=== PATIENT | female | born 1990 | race Two or more races ===

== ENCOUNTER 2020-07-29 00:30 | Emergency (ER) | payer OTHER, SELFPAY ==
[2020-07-29 00:47] VITALS: BP 161/69; PULSE 92; RESP 18; TEMP 35.7; O2SAT 99; BMI 51.5
--- NOTE | 2020-07-29 04:00 | ECG_ITS ---
Test Reason : ANXIETY Blood Pressure : / mmHG Vent. Rate : 073 BPM Atrial Rate : 073 BPM P-R Int : 166 ms QRS Dur : 078 ms QT Int : 410 ms P-R-T Axes : 048 044 024 degrees QTc Int : 451 ms Normal sinus rhythm Normal ECG When compared with ECG of 23-JAN-2018 01:04, No significant change was found Referred By: Lynn Sheridan Electronically Signed By:DEVEN JUAN MD
--- NOTE | 2020-07-29 04:01 | ED.GENADULT ---
HPI - General Adult General Chief complaint: Anxiety Stated complaint: Sob Time Seen by Provider: 07/29/20 03:56 Source: patient Mode of arrival: ambulatory Limitations: no limitations History of Present Illness HPI narrative: Patient comes to emergency room complaining of palpitations. Patient states that she was driving today, started feeling palpitations, shortness of breath, tried to drink water to make herself feel better but could not swallow. Patient states she has never been diagnosed with anxiety. Patient has had this similar episodes 4 times within the last 3 months. Patient denies chest pain. At this moment, patient is asymptomatic. MD complaint: palpitations Onset (ago): hour(s) Radiation: non-radiation Pain Consistency: intermittent Relieving factors: none Exacerbating factors: none Related Data Allergies Allergy/AdvReac Type Severity Reaction Status Date / Time amoxicillin [AMOXICILLIN] Allergy Intermediate HIVES Unverified 07/02/20 16:24 codeine [CODEINE] Allergy Intermediate RASH Unverified 07/02/20 16:24 latex [LATEX] Allergy Intermediate RED PUFFY Unverified 07/02/20 16:24 Penicillins [PENICILLINS] Allergy Intermediate HIVES Unverified 07/02/20 16:24 From KEFLEX Allergy Intermediate HIVES Uncoded 07/02/20 16:24 Review of Systems Review of Systems: Constitutional : No Weight loss, No Fever, No Chills, No Night Sweats, No Fatigue, No Malaise ENT/Mouth : No Hearing loss, No Ear Pain, No Nasal Congestion, No Sinus Pain, No Hoarseness, No sore throat, No Rhinorrhea, No Swallowing Difficulty Eyes: No Eye Pain, No Swelling, No Redness, No Foreign Body, No Discharge, No Vision Changes Cardiovascular : No Chest Pain, mild dyspnea with palpitations, No Orthopnea, No Edema, Respiratory : No Cough, No Sputum, No Wheezing, No Smoke Exposure, No Dyspnea Gastrointestinal : No Nausea, No Vomiting, No Diarrhea, No Constipation, No abdominal Pain, No Hematochezia, No Melena Genitourinary : no irregular bleeding, No Dysuria, No Urinary Frequency, No Hematuria, No Urinary Incontinence, No Urgency, No Flank Pain, No Urinary Flow Changes, No Hesitancy Musculoskeletal : No joint pain, No Myalgias, No Joint Swelling Skin : No Skin Lesions, No rash Neuro : No Weakness, No Numbness, No Paresthesias, No Loss of Consciousness, No Dizziness, No Headache Psych : No Anxiety/Panic, No Depression, No SI/HI/AH/VH, No Social Issues, Heme/Lymph: No Bruising, No Bleeding,No Lymphadenopathy Endocrine : No Polyuria, No Polydipsia, No Temperature Intolerance FOR[facility] Social History Social History Advance Directives: No Advance Directives Information Provided: No Physical Exam Vital Signs: Vital Signs: Vital Signs Temp Pulse Resp BP Pulse Ox 07/29/20 06:27 79 14 118/77 100 07/29/20 04:14 72 14 109/64 99 07/29/20 00:47 96.2 F L 92 18 161/69 H 99 Body Mass Index 51.5 Appearance: Alert. Oriented X3. No acute distress. Eyes: Pupils equal, round and reactive to light. ENT: Pharynx normal. Neck: Normal inspection. Neck supple. No lymph nodes noted. No crepitus CVS: Normal heart rate and rhythm. Pulses normal. Normal S1 and S2 Respiratory: No respiratory distress. Breath sounds normal. No Wheezing. No rales Abdomen: Soft and nontender. No rigidity. No distention. good BS x4 Skin: Skin warm and dry. Normal skin color. Normal skin turgor. Extremities: No lower extremity edema. No lower extremity edema. No Lacerations. No Rash Neuro: Oriented X 3. No motor deficit. No sensory deficit. Moving all extermities. No slurred speech. Course Course Course Narrative: patient slept throughout the ED stay. Patient no longer however palpitations, no chest pain or shortness of breath. Medical Decision Making MDM Narrative Medical decision making narrative: I discussed the labs with the patient, patient may need a Holter monitor if she continues having symptoms. Patient instructed to follow-up with her primary care physician. Lab Data Result diagrams: 07/29/20 04:30 07/29/20 04:30 Labs: Lab Results 07/29/20 07/29/20 Range/Units 04:30 04:30 WBC 12.8 H (4.8-10.8) X10*3/uL RBC 4.46 (4.20-5.50) X10*6/uL Hgb 12.3 (12.0-16.0) g/dl Hct 39.1 (37-47) % MCV 87.7 (80-98) fL MCH 27.6 (27.0-33.0) pg MCHC 31.5 (31.0-35.0) g/dl RDW 13.2 (11.0-16.0) % Plt Count 276 (160-400) X10*3/uL MPV 10.8 (9.4-12.3) fL Immature Gran % (Auto) 0.5 H (0.0-0.4) % Neut % (Auto) 63.8 (45-73) % Lymph % (Auto) 27.6 (20-40) % [place] % (Auto) 6.2 (2-11) % Eos % (Auto) 1.7 (0-4) % Baso % (Auto) 0.2 (0-2) % Lymph # (Auto) 3.5 (1.2-4.9) X10*3/uL [place] # (Auto) 0.8 (0.1-1.2) X10*3/uL Eos # (Auto) 0.2 (0.0-0.4) X10*3/uL Baso # (Auto) 0.0 (0.0-0.2) X10*3/uL Abs Immat Gran (auto) 0.06 H (0.00-0.03) X10*3/uL Absolute Neuts (auto) 8.2 (2.0-8.3) X10*3/uL Absolute Nucleated RBC 0.000 (0.0-0.012) X10*3/uL Nucleated RBC % (auto) 0.0 (0.0-0.2) /100WBC Sodium 136 (135-145) mmol/L Potassium 3.7 (3.3-5.1) mmol/l Chloride 103 (96-108) mmol/L Carbon Dioxide 25 (22-29) mmol/L Anion Gap 12 (12-20) BUN 13 (9-16) mg/dL Creatinine 0.70 (0.5-1.4) mg/dL Estim Creat Clear Calc 163.3 Estimated GFR > 60 Random Glucose 91 (60-115) mg/dL Calcium 9.2 (8.4-10.2) mg/dL TSH 3.73 (0.32-4.0) mIU/mL Discharge Plan Discharge Clinical Impression: Heart palpitations Patient Disposition: Home, Self-Care Instructions: Heart Palpitations (ED) Additional Instructions: Please follow-up with your primary care physician tomorrow. If you have any worsening or new symptoms, please return to the emergency room or call 911
[2020-07-29 04:14] VITALS: BP 109/64; PULSE 72; RESP 14; O2SAT 99
[2020-07-29 04:36] LABS: Basophils Percent Auto 0.2 % (0-2); Eosinophils Absolute Auto 0.2 X10*3/uL (0.0-0.4); Eosinophils Percent Auto 1.7 % (0-4); Hematocrit 39.1 % (37-47); Hemoglobin 12.3 g/dl (12.0-16.0); Imm Gran Abs Auto 0.06 X10*3/uL (0.00-0.03); Imm Gran Pct Auto 0.5 % (0.0-0.4); Lymphocytes Absolute Auto 3.5 X10*3/uL (1.2-4.9); Lymphocytes Percent Auto 27.6 % (20-40); MANUAL DIFF FLAG NO; Mean Corpuscular HGB Conc 31.5 g/dl (31.0-35.0); Mean Corpuscular Hemoglobin 27.6 pg (27.0-33.0); Mean Corpuscular Volume 87.7 fL (80-98); Mean Platelet Volume 10.8 fL (9.4-12.3); Monocytes Absolute Auto 0.8 X10*3/uL (0.1-1.2); Monocytes Percent Auto 6.2 % (2-11); Neutrophils Absolute Auto 8.2 X10*3/uL (2.0-8.3); Neutrophils Percent Auto 63.8 % (45-73); Platelet Count 276 X10*3/uL (160-400); Red Blood Count 4.46 X10*6/uL (4.20-5.50); Red Cell Distribution Width 13.2 % (11.0-16.0); White Blood Count 12.8 X10*3/uL (4.8-10.8)
[2020-07-29 05:33] LABS: Anion Gap 12 (12-20); Blood Urea Nitrogen 13 mg/dL (9-16); Carbon Dioxide 25 mmol/L (22-29); Chloride 103 mmol/L (96-108); Creatinine Clr Calc Pharmacy 163.3; Estimated Glomerular Filt Rate > 60; Glucose Random 91 mg/dL (60-115); Potassium 3.7 mmol/l (3.3-5.1); Sodium 136 mmol/L (135-145)
[2020-07-29 05:39] LABS: Calcium 9.2 mg/dL (8.4-10.2)
[2020-07-29 05:41] LABS: TSH reflex Free T4 3.73 mIU/mL (0.32-4.0)
[2020-07-29 06:27] VITALS: BP 118/77; PULSE 79; RESP 14; O2SAT 100
== END 2020-07-29 07:28 | disposition home or self-care (01) ==
PROVIDERS: Emergency Provider Emergency Medicine; PCP Internal Medicine
DX: R00.2 Palpitations (principal); R06.02 Shortness of breath; F41.9 Anxiety disorder, unspecified; Z79.899 Other long term (current) drug therapy
CPT/HCPCS: 36415; 80048; 84443; 85025; 93005; 99283; 99284

== ENCOUNTER 2020-08-18 11:09 | Outpatient (REF) | payer OTHER, SELFPAY | END 2020-08-18 11:10 | disposition home or self-care (01) | LOC: HO.LAB 11:09 | PROVIDERS: Visit Provider Internal Medicine | DX: Z20.828 Contact with and (suspected) exposure to other viral communicable diseases (principal) | CPT/HCPCS: U0003 ==

== ENCOUNTER 2020-09-28 10:15 | Outpatient (REF) | payer OTHER, SELFPAY | END 2020-09-28 10:16 | disposition home or self-care (01) | LOC: HO.LAB 10:15 | PROVIDERS: Visit Provider Internal Medicine | DX: Z20.828 Contact with and (suspected) exposure to other viral communicable diseases (principal) | CPT/HCPCS: C9803; U0003 ==

== ENCOUNTER 2021-09-14 00:06 | Emergency (ER) | payer OTHER, SELFPAY ==
[2021-09-14 01:50] VITALS: BP 118/70; PULSE 80; RESP 18; TEMP 36.1; O2SAT 99; BMI 54.9
[2021-09-14 02:19] VITALS: O2SAT 98
[2021-09-14 02:45] LABS: IDNOW Serial# 08D9AD1C
[2021-09-14 02:46] LABS: COVID-19 Test Positive (Negative)
--- NOTE | 2021-09-14 03:25 | ED.URI ---
HPI - URI/Sore Throat General Chief Complaint: Upper Respiratory Symptoms Stated Complaint: diff breathing Time Seen by Provider: 09/14/21 02:10 Source: patient Mode of arrival: ambulatory History of Present Illness HPI Narrative: 30-year-old female presents with chest tightness, shortness of breath, dry cough and nasal congestion. Patient endorses that she has not COVID-19 vaccinated and went to a concert 2 days ago. Related Data Allergies Allergy/AdvReac Type Severity Reaction Status Date / Time amoxicillin [AMOXICILLIN] Allergy Intermediate HIVES Unverified 07/02/20 16:24 codeine [CODEINE] Allergy Intermediate RASH Unverified 07/02/20 16:24 latex [LATEX] Allergy Intermediate RED PUFFY Unverified 07/02/20 16:24 Penicillins [PENICILLINS] Allergy Intermediate HIVES Unverified 07/02/20 16:24 From KEFLEX Allergy Intermediate HIVES Uncoded 07/02/20 16:24 Review of Systems Review of Systems: Pertinent positives and negatives as stated in HPI 10 point review of systems is otherwise negative. FORMERLY [facility], [facility] Past Medical History Source: nursing notes reviewed Social History Social History Advance Directives: No Advance Directives Information Provided: No Physical Exam Vital Signs: Vital Signs: Last Vital Signs Temp 97 F 09/14/21 01:50 Pulse 80 09/14/21 01:50 Resp 18 09/14/21 01:50 BP 118/70 09/14/21 01:50 Pulse Ox 98 09/14/21 02:19 Body Mass Index 54.9 VITAL SIGNS: Reviewed. GENERAL: Well developed, well nourished, in no acute distress. HEAD: Normocephalic/atraumatic EYES: PERRLA, EOMI EARS: Ext canals without abnormality, TMs non-bulging and non-erythematous NOSE: Nares patent bilateral OROPHARYNX: no oral lesions noted, posterior pharynx clear and non-erythematous without noted tonsillar enlargement/erythema/exudates NECK: Supple, no adenopathy LUNGS: Normal breath sounds. No adventitious sounds or accessory muscle use. SpO2<98> CARDIOVASCULAR: Regular rate and rhythm without noted murmurs, no JVD or lower extremity edema. ABDOMEN: Soft, non-tender, non-distended with bowel sounds. NEUROLOGIC: Alert and oriented x 4. Course Course Course Narrative: This is a 30-year-old female with history and clinical presentation most consistent with COVID-19 infection and on review of all investigations patient is positive for COVID-19. She was informed of the results And informed that she needed to self quarantine. She is otherwise without increased work of breathing, oxygenating well and afebrile. MDM - URI/Sore Throat Lab Data Labs: Lab Results 09/14/21 Range/Units 02:19 COVID-19 (RADHA) Positive A (Negative) COVID-19 Clin Com See Note Discharge Plan Discharge Clinical Impression: Viral syndrome, Lab test positive for detection of COVID-19 virus Patient Disposition: Home, Self-Care Instructions: COVID-19 (Coronavirus Disease 2019) (ED), Viral Syndrome (ED) Additional Instructions: 1. You have COVID-19 and must self quarantine as per all state and Federal guidelines. 2. Recommend using [id number] Tylenol/ ibuprofen as needed for any body aches, chest congestion, temperatures greater than 100.4. 3. Follow-up with your primary care provider via telemedicine and the next 1-2 days for re-evaluation and further outpatient management. Return to the ER for worsening shortness of breath. Referrals: Nataliia Francisco MD [Primary Care Provider] - 2 days
--- NOTE | 2021-09-14 03:40 | PC.NURSE ---
Pt remains alert and oriented x4, calm and cooperative. Pt denies pain at this time. Pt states SOB at times, does appear in acute distress and O2 sat on room air is 99%. Pt educated by MD Scales and AYAZ Gonzalez regarding positive Covid results, pt refuses results and states thats false it can t be true . Pt states this is bronchitis . Pt educated on similarities between symptoms of Covid-19 and Bronchitis as well as social history of attending a crowded concert per patient this past Monday. Pt educated on positive results and how not being vaccinated places her at increased risk of barrie the disease. educated patient with RN present that she has the right to obtain a second opinion elsewhere if she would like. Pt educated on Covid-19 precautions and isolation measures and to return to ER if symptoms worsen. Pt stated an understanding and agreed to discharge, pt walked out of ER independently without issues. No IV in place, vitals stable.
== END 2021-09-14 03:45 | disposition home or self-care (01) ==
PROVIDERS: Emergency Provider Student in an Organized Health Care Education/Training Program; PCP Internal Medicine
DX: U07.1 COVID-19 (principal); B34.9 Viral infection, unspecified
CPT/HCPCS: 36415; 87635; 99283; 99284

== ENCOUNTER 2021-09-17 13:20 | Emergency (ER) | payer OTHER, SELFPAY ==
--- NOTE | ~2021-09-17 | XR_ITS ---
EXAMINATION: XR CHEST CLINICAL INFORMATION: COVID positive COMPARISON: Chest radiographs 03/02/2019, 06/24/2018 TECHNIQUE: Frontal view chest was obtained. FINDINGS: There are subtle airspace opacities right base and left suprahilar region. There is no lobar or segmental airspace consolidation or effusion. No pneumothorax or pneumomediastinum. The costophrenic sulci are clear. Heart size normal. The hilar and mediastinal contours and bony structures are unremarkable. XR/XR chest 1V IMPRESSION: Airspace opacities right base and left suprahilar region. No effusion.
[2021-09-17 14:40] VITALS: BP 130/70; PULSE 106; RESP 20; TEMP 37; O2SAT 98; BMI 54.9
--- NOTE | 2021-09-17 18:57 | ED.URI ---
HPI - URI/Sore Throat General Chief Complaint: Upper Respiratory Symptoms Stated Complaint: COVID + DIFF BREATHING Time Seen by Provider: 09/17/21 18:56 Source: patient Mode of arrival: ambulatory Limitations: no limitations History of Present Illness HPI Narrative: Patient been COVID positive for last 5 days not vaccinated against COVID coughing a lot having nausea and diarrhea body aches noticed slight shortness of breath saturating 98% at room air on arrival denies any fever Related Data Previous Rx's Medication Instructions Recorded albuterol sulfate 90 mcg/actuation 2 puff INHALATION Q4-6H PRN #8.5 g 09/17/21 aerosol inhaler (ProAir HFA) benzonatate 200 mg capsule 200 mg PO TID PRN #30 cap 09/17/21 dexamethasone 6 mg tablet 6 mg PO DAILY #7 tab 09/17/21 (Decadron) loperamide 2 mg capsule (Imodium 2 mg PO Q6H PRN #20 cap 09/17/21 A-D) ondansetron 4 mg disintegrating 4 mg PO Q6-8H PRN #7 tab 09/17/21 tablet Allergies Allergy/AdvReac Type Severity Reaction Status Date / Time amoxicillin [AMOXICILLIN] Allergy Intermediate HIVES Unverified 07/02/20 16:24 codeine [CODEINE] Allergy Intermediate RASH Unverified 07/02/20 16:24 latex [LATEX] Allergy Intermediate RED PUFFY Unverified 07/02/20 16:24 Penicillins [PENICILLINS] Allergy Intermediate HIVES Unverified 07/02/20 16:24 From KEFLEX Allergy Intermediate HIVES Uncoded 07/02/20 16:24 Review of Systems Review of Systems: Yes all other systems are reviewed and are negative PMFSH Social History Social History Advance Directives: No Advance Directives Information Provided: No Physical Exam Vital Signs: Vital Signs: Last Vital Signs Temp 98.6 F 09/17/21 14:40 Pulse 106 H 09/17/21 14:40 Resp 20 09/17/21 14:40 BP 130/70 09/17/21 14:40 Pulse Ox 98 09/17/21 14:40 BMI result Body Mass Index 54.9 Appearance: Alert. Oriented X3. No acute distress. Obese with dry cough Eyes: No pallor or icterus ENT: Pharynx normal. Oral Mucosa moist right tympanic membrane with hole which is chronic Neck: Normal inspection. Neck supple. CVS: Normal heart rate and rhythm. Pulses normal. Respiratory: No respiratory distress. Equal air entry bilateral, prolonged expiration with dry cough Abdomen: Soft and nontender. Bowel sounds are present, no mass palpable, Skin: Skin warm and dry. Normal skin color. Normal skin turgor. Extremities: No lower extremity edema. No calf tenderness Neuro: Oriented X 3. MDM - URI/Sore Throat Lab Data Attestation: I reviewed the patient's lab results. Discharge Plan Discharge Clinical Impression: COVID-19 Patient Disposition: Home, Self-Care Instructions: COVID-19 (Coronavirus Disease 2019) (ED) Additional Instructions: Social distancing in isolation as advised Medication as advised Report to the ER if increased shortness of breath Prescriptions: New dexamethasone [Decadron] 6 mg tablet 6 mg PO DAILY Qty: 7 RF: 0 albuterol sulfate [ProAir HFA] 90 mcg/actuation HFA aerosol inhaler 2 puff inhalation Q4-6H PRN (Reason: shortness of breath or wheezing) Qty: 8.5 RF: 0 ondansetron 4 mg tablet,disintegrating 4 mg PO Q6-8H PRN (Reason: nausea and vomiting) Qty: 7 RF: 0 benzonatate 200 mg capsule 200 mg PO TID PRN (Reason: cough) Qty: 30 RF: 0 loperamide [Imodium A-D] 2 mg capsule 2 mg PO Q6H PRN (Reason: loose stool) Qty: 20 RF: 0
[2021-09-17] MEDS: Loperamide HCl 2 MG CAPSULE 4 MG PO (19:45)
[2021-09-17] MEDS: Albuterol Sulfate 90 MCG 8 GM INHALER 4 PUFF INHALE (19:45)
[2021-09-17] MEDS: dexAMETHasone 6 MG TABLET PO (19:45)
[2021-09-17] MEDS: Benzonatate 100 MG CAPSULE 200 MG PO (19:45)
[2021-09-17] MEDS: Ondansetron ODT 4 MG TAB.RAPDIS TRANSLINGU (19:45)
== END 2021-09-17 20:17 | disposition home or self-care (01) ==
PROVIDERS: Emergency Provider Internal Medicine; PCP Internal Medicine
DX: U07.1 COVID-19 (principal)
CPT/HCPCS: 71045; 99283; 99284; J8540

== ENCOUNTER 2021-11-23 09:41 | Emergency (ER) | payer OTHER, SELFPAY ==
--- NOTE | ~2021-11-23 | US_ITS ---
EXAMINATION: US PELVIS CLINICAL INFORMATION: Left-sided pain for 2 days COMPARISON: Previous pelvic ultrasound January 2020 TECHNIQUE: Ultrasound of the pelvis is performed using both transabdominal and transvaginal transducers along with Doppler. Transvaginal imaging is performed due to inadequate visualization transabdominally. FINDINGS: The uterus is retroverted and measures 8.1 x 3.5 x 6.6 cm in dimension. No focal uterine lesion is seen. Endometrial thickness is normal measuring 1.3 cm. There are nabothian cysts in the cervix. There is a small amount of fluid seen in the endometrium and endocervical canal. The right ovary is slightly enlarged and measures 4.3 x 4.1 x 3.9 cm. There is a 3.3 x 3.4 x 2.7 cm simple right ovarian cyst. The left ovary is normal-appearing and measures 2.6 x 2.1 x 1.9 cm. There is no fluid in the pelvis. US/US pelvic and transvaginal IMPRESSION: 3.3 x 3.4 x 2.7 cm simple right ovarian cyst.
[2021-11-23 09:50] VITALS: BP 140/90; PULSE 95; RESP 18; TEMP 37.4; O2SAT 97; BMI 54.9
[2021-11-23 10:09] LABS: Appearance Urine HAZY; Color Urine YELLOW; Glucose Urine UA NEG (NEG); Leukocyte Esterase Urine NEG (NEG); Nitrite Urine NEG (NEG); Specific Gravity - Urine 1.025 (1.005-1.025); UACC Culture Trigger NO; Urine Blood 2+ (NEG); Urine Ketones NEG (NEG); Urine Protein NEG (NEG-TRACE)
[2021-11-23 10:13] LABS: UPreg QC Valid YES; Urine Pregnancy NEGATIVE (NEGATIVE)
[2021-11-23 10:20] LABS: Mucus Urine 1+ /LPF; Squamous Epithelial Cell Urine 2+ /LPF; WBC Urine 0 /HPF (0-4)
[2021-11-23 10:21] LABS: Bacteria Urine 1+ /LPF
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
[2021-11-23 11:44] VITALS: BP 134/62; PULSE 77; RESP 16; TEMP 36.5; O2SAT 98
[2021-11-23 13:51] LABS: CT PCR NOT DETECTED (Not Detect.); NG PCR NOT DETECTED (Not Detect.)
== END 2021-11-23 11:56 | disposition home or self-care (01) ==
PROVIDERS: Nurse Practitioner Family; Emergency Provider Emergency Medicine; PCP Internal Medicine
DX: H60.93 Unspecified otitis externa, bilateral (principal); H66.93 Otitis media, unspecified, bilateral; N83.201 Unspecified ovarian cyst, right side; R10.32 Left lower quadrant pain; Z79.899 Other long term (current) drug therapy
CPT/HCPCS: 76830; 76856; 81001; 81025; 87491; 87591; 99284

== ENCOUNTER 2022-10-19 15:38 | Emergency (ER) | payer OTHER, SELFPAY ==
--- NOTE | ~2022-10-19 | XR_ITS ---
EXAMINATION: XR CHEST CLINICAL INFORMATION: Chest pain. COMPARISON: Chest radiograph dated from 09/17/2021. TECHNIQUE: Frontal view of the chest was obtained. FINDINGS: Normal appearance of the cardiomediastinal silhouette. Previously described subtle airspace opacities in the right base and left suprahilar region are resolved. No new focal airspace opacities. No pleural effusion or pneumothorax. No acute osseous abnormalities. XR/XR chest 1V IMPRESSION: No acute cardiopulmonary findings. Resolution of previously described airspace opacities. No pleural effusion or pneumothorax.
[2022-10-19 16:29] VITALS: BP 155/77; PULSE 90; RESP 18; TEMP 36.9; O2SAT 100; BMI 56.6
--- NOTE | 2022-10-19 16:29 | ECG_ITS ---
Test Reason : CHEST PAIN Blood Pressure : / mmHG Vent. Rate : 084 BPM Atrial Rate : 084 BPM P-R Int : 160 ms QRS Dur : 076 ms QT Int : 380 ms P-R-T Axes : 049 037 022 degrees QTc Int : 449 ms Normal sinus rhythm Normal ECG When compared with ECG of 29-JUL-2020 04:12, No significant change was found Referred By: Herlinda Morales Electronically Signed By:ANTONIO CHESTER
--- NOTE | 2022-10-19 16:29 | ED.CHESTPAIN ---
HPI - Chest Pain General Chief Complaint: Chest Pain <ESTELA Pickering - Last Filed: 10/19/22 16:32> Stated Complaint: Chest pain, L sided numbness <ESTELA Pickering - Last Filed: 10/19/22 16:32> Time Seen by Provider: 10/19/22 23:45 <ESTELA Pickering - Last Filed: 10/19/22 16:32> Source: patient <Emerald Donahue MD - Last Filed: 10/20/22 00:36> Mode of arrival: ambulatory <Emerald Donahue MD - Last Filed: 10/20/22 00:36> Limitations: no limitations <Emerald Donahue MD - Last Filed: 10/20/22 00:36> History of Present Illness HPI narrative: 31-year-old female came in for evaluation of chest pain. Chest pain started since yesterday pain is midsternal, intermittent, feels like sharp pain, when it happen is about 7/10, no other associated symptoms, nothing aggravate the pain, nothing relieves the pain. Patient declined any trauma or injury to the chest, no recent travel, no lower extremity swelling, no history of PE or DVT. No coughing, no SOB. <Emerald Donahue MD - Last Filed: 10/20/22 00:36> Related Data Home Medications: Previous Rx's Medication Instructions Recorded albuterol sulfate 90 mcg/actuation 2 puff inhalation Q4-6H PRN 09/17/21 aerosol inhaler (ProAir HFA) shortness of breath or wheezing #8.5 grams benzonatate 200 mg capsule 200 mg PO TID PRN cough #30 caps 09/17/21 dexamethasone 6 mg tablet 6 mg PO DAILY #7 tabs 09/17/21 (Decadron) loperamide 2 mg capsule (Imodium 2 mg PO Q6H PRN loose stool #20 09/17/21 A-D) caps ondansetron 4 mg disintegrating 4 mg PO Q6-8H PRN nausea and 09/17/21 tablet vomiting #7 tabs azithromycin 250 mg tablet See Rx Instructions PO .COMPLEX #6 11/23/21 tabs ibuprofen 600 mg tablet 600 mg PO Q8H PRN pain #20 tabs 11/23/21 ibuprofen 400 mg tablet 400 mg PO Q8H PRN pain #20 tabs 10/20/22 <ESTELA Pickering - Last Filed: 10/19/22 16:32> Allergies/Adverse Reactions: Allergies Allergy/AdvReac Type Severity Reaction Status Date / Time amoxicillin [AMOXICILLIN] Allergy Intermediate HIVES Unverified 07/02/20 16:24 codeine [CODEINE] Allergy Intermediate RASH Unverified 07/02/20 16:24 latex [LATEX] Allergy Intermediate RED PUFFY Unverified 07/02/20 16:24 Penicillins [PENICILLINS] Allergy Intermediate HIVES Unverified 07/02/20 16:24 From KEFLEX Allergy Intermediate HIVES Uncoded 07/02/20 16:24 <ESTELA Pickering - Last Filed: 10/19/22 16:32> Review of Systems Review of Systems: all other systems are reviewed and are negative Constitutional: Reports as per HPI and Reports no additional constitutional complaints Eyes: Reports as per HPI and Reports no additional eye complaints Reports system reviewed and no additional complaints, except as documented Cardiovascular: Reports as per HPI and Reports no additional cardiovascular complaints Respiratory: Reports as per HPI and Reports no additional respiratory complaints Gastrointestinal: Reports as per HPI and Reports no additional gastrointestinal complaints Genitourinary: Reports no additional female genitourinary complaints Musculoskeletal: Reports no additional musculoskeletal complaints Skin/Breast: Reports system reviewed and no additional complaints, except as docu Psychiatric: Reports no additional psychiatric complaints Endocrine: Reports no additional endocrine complaints Hematologic/Lymphatic: Reports no additional hematologic/lymphatic complaints Allergic/Immunologic: Reports no additional allergic/immunologic complaints Reports system reviewed and no additional complaints, except as documented and Reports Abnormal speech present <Emerald Donahue MD - Last Filed: 10/20/22 00:36> [facility] Social History Social History: Social History Alcohol intake: never Patient Tobacco Use Status: Never used Tobacco Advance Directives: No Advance Directives Information Provided: Yes <ESTELA Pickering - Last Filed: 10/19/22 16:32> Physical Exam Vital Signs: Vital Signs: Last Vital Signs Temp 97.7 F 10/19/22 23:56 Pulse 86 10/19/22 23:56 Resp 17 01/04/23 23:56 BP 132/70 10/19/22 23:56 Pulse Ox 98 10/19/22 23:56 O2 Del Method 10/19/22 23:56 BMI result Body Mass Index 56.6 <ESTELA Pickering - Last Filed: 10/19/22 16:32> Vital Signs: Last Vital Signs Temp 97.7 F 10/19/22 23:56 Pulse 86 10/19/22 23:56 Resp 17 10/19/22 23:56 BP 132/70 10/19/22 23:56 Pulse Ox 98 10/19/22 23:56 O2 Del Method 10/19/22 23:56 BMI result Body Mass Index 56.6 vital signs have been reviewed as appeared to be correct. Blood pressure normal. Heart rate normal. Respiration rate normal. Temperature normal. Oxygen saturation normal. <Emerald Donahue MD - Last Filed: 10/20/22 00:36> Appearance: Alert. Oriented X3. No acute distress. Head: Normal external exam. Normocephalic. Atraumatic. No Russ signs noted. No raccoon eyes noted Eyes: PERRLA. EOMI. Conjunctiva and sclera normal. Eyelids normal. ENT: TM's Normal. Pharynx normal. Uvula midline. Moist mucous membranes. No trismus noted. No drooling noted. No muffled voice noted. Neck: Normal inspection. Neck supple. FROM. No adenopathy. Thyroid Normal. No meningeal signs. No neck mass noted. CVS: Normal heart rate and rhythm. Heart sound normal. No murmurs noted. Pulses normal throughout. Respiratory: No respiratory distress. Painless inspiration. Breath sounds normal. No wheezes/rales/rhonchi noted. mild midsternal reproducible tenderness, no rash, no redness, no hotness No accessory muscle usage noted or decreased air movement noted. Abdomen: Soft and nontender. Bowel sounds normal in all 4 quadrants. No distention noted. No organomegaly noted. No visible injury noted. Back: No CVA tenderness. Full range of motion noted. Skin: Skin warm and dry. Normal skin color. Normal skin turgor. No rashes/lesions/lacerations noted. Extremities: No lower extremity edema. Extremities exhibit normal range of motion. Extremities nontender. Neuro: Oriented X 3. Cranial nerve exam: II-XII are grossly intact No motor deficit. No sensory deficit. Reflexes normal. <Emerald Donahue MD - Last Filed: 10/20/22 00:36> Course Course Course Narrative: RUT-- 31 yo F w/PMHx hypothyroid on Levotyroxine with recent increase in dose, new DM on Metformin, c/o substernal CP, SOB, tingling in hands, palpitations x 3 days worsening today. Admits watch caught HR 120's [employer]. Reports feels like gasping for air. Nontoxic appearing, talking in complete sentences, VSS EKG, labs, CXR, COVID/flu/RSV ordered <ESTELA Pickering - Last Filed: 10/19/22 16:32> Reevaluation(s) Reevaluation #1: 31-year-old female presented for evaluation of reproducible mid chest pain, has unremarkable EKG with HEART score of 1, no risk for PE was unremarkable D-dimer. Will reassure and discharge with NSAIDs. <Emerald Donahue MD - Last Filed: 10/20/22 00:36> Medical Decision Making Differential Diagnosis Differential Diagnoses: The differential diagnosis associated with the presentation includes ( ACS/ PE/ costochondritis/pneumonia/pneumothorax /chest wall contusion.) <Emerald Donahue MD - Last Filed: 10/20/22 00:36> Lab Data MDM Lab Attestation statement: I reviewed the patient's lab results. <Emerald Donahue MD - Last Filed: 10/20/22 00:36> Result Diagrams: : 10/19/22 17:34 10/19/22 17:34 <ESTELA Pickering - Last Filed: 10/19/22 16:32> Labs: Lab Results 10/19/22 10/19/22 10/19/22 Range/Units 17:34 17:34 17:34 WBC 12.3 H (4.8-10.8) X10*3/uL RBC 4.34 (4.20-5.50) X10*6/uL Hgb 12.0 (12.0-16.0) g/dl Hct 37.9 (37.0-47.0) % MCV 87.3 (80.0-98.0) fL MCH 27.6 (27.0-33.0) pg MCHC 31.7 (31.0-35.0) g/dl RDW 12.5 (11.0-16.0) % Plt Count 314 (160-400) X10*3/uL MPV 10.7 (9.4-12.3) fL Immature Gran % (Auto) 0.5 H (0.0-0.4) % Neut % (Auto) 62.2 (45-73) % Lymph % (Auto) 30.8 (20-40) % [place] % (Auto) 5.0 (2-11) % Eos % (Auto) 1.3 (0-4) % Baso % (Auto) 0.2 (0-2) % Lymph # (Auto) 3.8 (1.2-4.9) X10*3/uL [place] # (Auto) 0.6 (0.1-1.2) X10*3/uL Eos # (Auto) 0.2 (0.0-0.4) X10*3/uL Baso # (Auto) 0.0 (0.0-0.2) X10*3/uL Abs Immat Gran (auto) 0.06 H (0.00-0.03) X10*3/uL Absolute Neuts (auto) 7.7 (2.0-8.3) x10*3/uL Absolute Nucleated RBC 0.000 (0.0-0.012) X10*3/uL Nucleated RBC % (auto) 0.0 (0.0-0.2) /100WBC Sodium 137 (135-145) mmol/L Potassium 3.7 (3.3-5.1) mmol/L Chloride 104 (96-108) mmol/L Carbon Dioxide 27 (22-29) mmol/L Anion Gap 10 L (12-20) BUN 12 (9-16) mg/dL Creatinine 0.73 (0.5-1.4) mg/dL Estim Creat Clear Calc 163.4 Estimated GFR > 60 Random Glucose 96 (60-115) mg/dL Calcium 9.3 (8.4-10.2) mg/dL Magnesium 1.9 (1.6-2.6) mg/dL Total Bilirubin 0.4 (0.0-1.0) mg/dL Direct Bilirubin < 0.2 (0.0-0.5) mg/dL AST 24 (5-31) U/L ALT 26 (0-31) U/L Alkaline Phosphatase 80 (39-117) U/L Troponin I High Sens < 3.5 (<3.5-17.0) ng/L Total Protein 8.2 H (6.5-8.0) g/dL Albumin 4.3 (3.5-5.0) g/dL TSH 2.29 (0.32-4.0) uIU/mL Influenza Type A (PCR) (Negative) Influenza Type B (PCR) (Negative) RSV RNA Qual (PCR) (Negative) SARS-CoV-2 RNA (RT-PCR) (Negative) 10/19/22 Range/Units 17:35 WBC (4.8-10.8) X10*3/uL RBC (4.20-5.50) X10*6/uL Hgb (12.0-16.0) g/dl Hct (37.0-47.0) % MCV (80.0-98.0) fL MCH (27.0-33.0) pg MCHC (31.0-35.0) g/dl RDW (11.0-16.0) % Plt Count (160-400) X10*3/uL MPV (9.4-12.3) fL Immature Gran % (Auto) (0.0-0.4) % Neut % (Auto) (45-73) % Lymph % (Auto) (20-40) % [place] % (Auto) (2-11) % Eos % (Auto) (0-4) % Baso % (Auto) (0-2) % Lymph # (Auto) (1.2-4.9) X10*3/uL [place] # (Auto) (0.1-1.2) X10*3/uL Eos # (Auto) (0.0-0.4) X10*3/uL Baso # (Auto) (0.0-0.2) X10*3/uL Abs Immat Gran (auto) (0.00-0.03) X10*3/uL Absolute Neuts (auto) (2.0-8.3) x10*3/uL Absolute Nucleated RBC (0.0-0.012) X10*3/uL Nucleated RBC % (auto) (0.0-0.2) /100WBC Sodium (135-145) mmol/L Potassium (3.3-5.1) mmol/L Chloride (96-108) mmol/L Carbon Dioxide (22-29) mmol/L Anion Gap (12-20) BUN (9-16) mg/dL Creatinine (0.5-1.4) mg/dL Estim Creat Clear Calc Estimated GFR Random Glucose (60-115) mg/dL Calcium (8.4-10.2) mg/dL Magnesium (1.6-2.6) mg/dL Total Bilirubin (0.0-1.0) mg/dL Direct Bilirubin (0.0-0.5) mg/dL AST (5-31) U/L ALT (0-31) U/L Alkaline Phosphatase (39-117) U/L Troponin I High Sens (<3.5-17.0) ng/L Total Protein (6.5-8.0) g/dL Albumin (3.5-5.0) g/dL TSH (0.32-4.0) uIU/mL Influenza Type A (PCR) NEGATIVE (Negative) Influenza Type B (PCR) NEGATIVE (Negative) RSV RNA Qual (PCR) NEGATIVE (Negative) SARS-CoV-2 RNA (RT-PCR) NEGATIVE (Negative) <ESTELA Pickering - Last Filed: 10/19/22 16:32> Lab Results 10/19/22 10/19/22 10/19/22 Range/Units 17:34 17:34 17:34 WBC 12.3 H (4.8-10.8) X10*3/uL RBC 4.34 (4.20-5.50) X10*6/uL Hgb 12.0 (12.0-16.0) g/dl Hct 37.9 (37.0-47.0) % MCV 87.3 (80.0-98.0) fL MCH 27.6 (27.0-33.0) pg MCHC 31.7 (31.0-35.0) g/dl RDW 12.5 (11.0-16.0) % Plt Count 314 (160-400) X10*3/uL MPV 10.7 (9.4-12.3) fL Immature Gran % (Auto) 0.5 H (0.0-0.4) % Neut % (Auto) 62.2 (45-73) % Lymph % (Auto) 30.8 (20-40) % [place] % (Auto) 5.0 (2-11) % Eos % (Auto) 1.3 (0-4) % Baso % (Auto) 0.2 (0-2) % Lymph # (Auto) 3.8 (1.2-4.9) X10*3/uL [place] # (Auto) 0.6 (0.1-1.2) X10*3/uL Eos # (Auto) 0.2 (0.0-0.4) X10*3/uL Baso # (Auto) 0.0 (0.0-0.2) X10*3/uL Abs Immat Gran (auto) 0.06 H (0.00-0.03) X10*3/uL Absolute Neuts (auto) 7.7 (2.0-8.3) x10*3/uL Absolute Nucleated RBC 0.000 (0.0-0.012) X10*3/uL Nucleated RBC % (auto) 0.0 (0.0-0.2) /100WBC Sodium 137 (135-145) mmol/L Potassium 3.7 (3.3-5.1) mmol/L Chloride 104 (96-108) mmol/L Carbon Dioxide 27 (22-29) mmol/L Anion Gap 10 L (12-20) BUN 12 (9-16) mg/dL Creatinine 0.73 (0.5-1.4) mg/dL Estim Creat Clear Calc 163.4 Estimated GFR > 60 Random Glucose 96 (60-115) mg/dL Calcium 9.3 (8.4-10.2) mg/dL Magnesium 1.9 (1.6-2.6) mg/dL Total Bilirubin 0.4 (0.0-1.0) mg/dL Direct Bilirubin < 0.2 (0.0-0.5) mg/dL AST 24 (5-31) U/L ALT 26 (0-31) U/L Alkaline Phosphatase 80 (39-117) U/L Troponin I High Sens < 3.5 (<3.5-17.0) ng/L Total Protein 8.2 H (6.5-8.0) g/dL Albumin 4.3 (3.5-5.0) g/dL TSH 2.29 (0.32-4.0) uIU/mL Influenza Type A (PCR) (Negative) Influenza Type B (PCR) (Negative) RSV RNA Qual (PCR) (Negative) SARS-CoV-2 RNA (RT-PCR) (Negative) 10/19/22 Range/Units 17:35 WBC (4.8-10.8) X10*3/uL RBC (4.20-5.50) X10*6/uL Hgb (12.0-16.0) g/dl Hct (37.0-47.0) % MCV (80.0-98.0) fL MCH (27.0-33.0) pg MCHC (31.0-35.0) g/dl RDW (11.0-16.0) % Plt Count (160-400) X10*3/uL MPV (9.4-12.3) fL Immature Gran % (Auto) (0.0-0.4) % Neut % (Auto) (45-73) % Lymph % (Auto) (20-40) % [place] % (Auto) (2-11) % Eos % (Auto) (0-4) % Baso % (Auto) (0-2) % Lymph # (Auto) (1.2-4.9) X10*3/uL [place] # (Auto) (0.1-1.2) X10*3/uL Eos # (Auto) (0.0-0.4) X10*3/uL Baso # (Auto) (0.0-0.2) X10*3/uL Abs Immat Gran (auto) (0.00-0.03) X10*3/uL Absolute Neuts (auto) (2.0-8.3) x10*3/uL Absolute Nucleated RBC (0.0-0.012) X10*3/uL Nucleated RBC % (auto) (0.0-0.2) /100WBC Sodium (135-145) mmol/L Potassium (3.3-5.1) mmol/L Chloride (96-108) mmol/L Carbon Dioxide (22-29) mmol/L Anion Gap (12-20) BUN (9-16) mg/dL Creatinine (0.5-1.4) mg/dL Estim Creat Clear Calc Estimated GFR Random Glucose (60-115) mg/dL Calcium (8.4-10.2) mg/dL Magnesium (1.6-2.6) mg/dL Total Bilirubin (0.0-1.0) mg/dL Direct Bilirubin (0.0-0.5) mg/dL AST (5-31) U/L ALT (0-31) U/L Alkaline Phosphatase (39-117) U/L Troponin I High Sens (<3.5-17.0) ng/L Total Protein (6.5-8.0) g/dL Albumin (3.5-5.0) g/dL TSH (0.32-4.0) uIU/mL Influenza Type A (PCR) NEGATIVE (Negative) Influenza Type B (PCR) NEGATIVE (Negative) RSV RNA Qual (PCR) NEGATIVE (Negative) SARS-CoV-2 RNA (RT-PCR) NEGATIVE (Negative) <Emerald Donahue MD - Last Filed: 10/20/22 00:36> Independent Interpretation I performed an independent interpretation of an: EKG ( Normal sinus rhythm at 84 beats per minute, normal intervals, normal axis deviation, no ST-T changes, no change from Previous EKG.) and Plain X-Ray ( Chest: No acute intrathoracic pathology.) <Emerald Donahue MD - Last Filed: 10/20/22 00:36> Radiology Impression Discussion of test interpretation with radiology: I have reviewed the radiologist's reading. <Emerald Donahue MD - Last Filed: 10/20/22 00:36> Discharge Plan Discharge Clinical Impression: Costalchondritis <ESTELA Pickering - Last Filed: 10/19/22 16:32> Patient Disposition: Home, Self-Care <ESTELA Pickering - Last Filed: 10/19/22 16:32> Instructions: Costochondritis (ED) <ESTELA Pickering - Last Filed: 10/19/22 16:32> Prescriptions: New ibuprofen 400 mg tablet 400 mg PO Q8H PRN (Reason: pain) Qty: 20 0RF No Action dexamethasone [Decadron] 6 mg tablet 6 mg PO DAILY Qty: 7 0RF albuterol sulfate [ProAir HFA] 90 mcg/actuation HFA aerosol inhaler 2 puff inhalation Q4-6H PRN (Reason: shortness of breath or wheezing) Qty: 8.5 0RF ondansetron 4 mg tablet,disintegrating 4 mg PO Q6-8H PRN (Reason: nausea and vomiting) Qty: 7 0RF benzonatate 200 mg capsule 200 mg PO TID PRN (Reason: cough) Qty: 30 0RF loperamide [Imodium A-D] 2 mg capsule 2 mg PO Q6H PRN (Reason: loose stool) Qty: 20 0RF azithromycin 250 mg tablet See Rx Instructions .ROUTE .COMPLEX Qty: 6 0RF Rx Instructions: For 250 mg dose pack: take 500 mg today (day 1), then 250 mg for 4 days (days 2-5) ibuprofen 600 mg tablet 600 mg PO Q8H PRN (Reason: pain) Qty: 20 0RF <ESTELA Pickering - Last Filed: 10/19/22 16:32>
[2022-10-19 17:40] LABS: MANUAL DIFF FLAG NO
[2022-10-19 17:52] LABS: Basophils Percent Auto 0.2 % (0-2); Eosinophils Absolute Auto 0.2 X10*3/uL (0.0-0.4); Eosinophils Percent Auto 1.3 % (0-4); Hematocrit 37.9 % (37.0-47.0); Imm Gran Abs Auto 0.06 X10*3/uL (0.00-0.03); Imm Gran Pct Auto 0.5 % (0.0-0.4); Lymphocytes Absolute Auto 3.8 X10*3/uL (1.2-4.9); Lymphocytes Percent Auto 30.8 % (20-40); Mean Corpuscular HGB Conc 31.7 g/dl (31.0-35.0); Mean Corpuscular Hemoglobin 27.6 pg (27.0-33.0); Mean Corpuscular Volume 87.3 fL (80.0-98.0); Mean Platelet Volume 10.7 fL (9.4-12.3); Monocytes Absolute Auto 0.6 X10*3/uL (0.1-1.2); Neutrophils Absolute Auto 7.7 x10*3/uL (2.0-8.3); Neutrophils Percent Auto 62.2 % (45-73); Platelet Count 314 X10*3/uL (160-400); Red Blood Count 4.34 X10*6/uL (4.20-5.50); Red Cell Distribution Width 12.5 % (11.0-16.0); White Blood Count 12.3 X10*3/uL (4.8-10.8)
[2022-10-19 18:11] LABS: Alanine Aminotransferase 26 U/L (0-31); Albumin Level 4.3 g/dL (3.5-5.0); Alkaline Phosphatase 80 U/L (39-117); Anion Gap 10 (12-20); Aspartate Amino Transferase 24 U/L (5-31); Bilirubin Direct < 0.2 mg/dL (0.0-0.5); Bilirubin Total 0.4 mg/dL (0.0-1.0); Blood Urea Nitrogen 12 mg/dL (9-16); Calcium 9.3 mg/dL (8.4-10.2); Carbon Dioxide 27 mmol/L (22-29); Chloride 104 mmol/L (96-108); Creatinine Clr Calc Pharmacy 163.4; Estimated Glomerular Filt Rate > 60; Glucose Random 96 mg/dL (60-115); Magnesium 1.9 mg/dL (1.6-2.6); Potassium 3.7 mmol/L (3.3-5.1); Sodium 137 mmol/L (135-145); Total Protein 8.2 g/dL (6.5-8.0)
[2022-10-19 18:14] LABS: Troponin-I High Sensitivity < 3.5 ng/L (<3.5-17.0)
[2022-10-19 18:26] LABS: TSH reflex Free T4 2.29 uIU/mL (0.32-4.0)
[2022-10-19 18:27] LABS: Influenza A PCR NEGATIVE (Negative); Influenza B PCR NEGATIVE (Negative); Resp Syncy Virus RNA Qual PCR NEGATIVE (Negative); SARS COV2 PCR INHOUSE NEGATIVE (Negative)
[2022-10-19 23:56] VITALS: BP 132/70; PULSE 86; RESP 17; TEMP 36.5; O2SAT 98
[2022-10-20 00:53] LABS: D Dimer High Sensitivity < 150 NG/ML
[2022-10-20 00:58] LABS: Troponin-I High Sensitivity < 3.5 ng/L (<3.5-17.0)
== END 2022-10-20 01:33 | disposition home or self-care (01) ==
PROVIDERS: Physician Assistant; Emergency Provider Emergency Medicine
DX: M94.0 Chondrocostal junction syndrome [Tietze] (principal); Z20.822 Contact with and (suspected) exposure to COVID-19
CPT/HCPCS: 0241U; 36415; 71045; 80048; 80076; 83735; 84443; 84484; 85025; 85379; 93005; 99284

== ENCOUNTER → 2023-05-18 13:24 | Outpatient (BNVA) | payer OTHER, SELFPAY | PROVIDERS: Visit Provider Physician Assistant Surgical ==

== ENCOUNTER 2023-07-06 12:50 | Outpatient (AMB) | payer OTHER, SELFPAY ==
--- NOTE | 2023-07-06 12:51 | MHC.OFFVISWM ---
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 Her goal is not to be so tired. She reports first being concerned about her weight since childhood, JAMSHID 6. She has tried multiple methods of weight loss including different dietary changes without permanent results. She lives with alone, just ended 5 years relationship. She works 6 days per week, 9am - 8pm 3d/wk at one job 12pm - 9:30 pm - 3d on weekends. Patient does not coock- fast food at least twice per day. She wakes at: 7:45 am -> 9pm, bed at 12 MN - 3 am - sometimes stays up all night Breakfast: coffee at 9am - 1 cup with 2 creams and 1 sugar 11 - 12 pm - bagel with butter, water Lunch: 2:30 pm - fast food - dbl cheese burger and Diet Coke Dinner: 8:30pm- rice/beans/meat and salad - at her mothers apt. After dinner: drinks fruit juice Other snacks: chips and sweets at 5 pm Liquids: Fruit juice, no other sweetened drinks Alcohol intake: 2 nights - 3 drinks per night, tobacco: quit 10 years ago, marijuana: smokes 2 joints per day - throughout the day Exercise: no regular exercise. 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 No therapist presently. Last mammogram: too young Last pap smear: Jul 2023 control method: never used any. - Will discuss with firer retort next month. JAMSHID:6 ESS: 15 GERD: 25 QOL: 132 [facility] Surgical History (Updated 07/06/23 @ 12:57 by PETRONA Richmond) History of hip surgery History of tonsillectomy Family History (Updated 07/06/23 @ 13:00 by PETRONA Richmond) Mother No problems noted. Father No problems noted. Social History (Updated 07/06/23 @ 13:01 by PETRONA Richmond) Household Members: None Housing: Apartment Alcohol intake: never Patient Tobacco Use Status: Never used Tobacco Use of substances other than those prescribed or required for medical reasons: Yes Substance Use Type: Marijuana Physical Exam Vital Signs: Last Vital Signs Temp 98.1 F 07/06/23 13:05 Pulse 100 07/06/23 13:05 Resp 16 07/06/23 13:05 BP 140/64 H 07/06/23 13:05 Pulse Ox 98 07/06/23 13:05 Oxygen Delivery Method Room Air 07/06/23 13:05 BMI result Body Mass Index 56.4 Const General: cooperative, no acute distress and well developed Nutritional Appearance: obese Orientation/consciousness: patient oriented x3 HEENT Head: Yes normal to inspection Neck Neck: Yes normal visual inspection Thyroid: Thyroid normal Resp Effort & Inspection: normal respiratory effort Auscultation: clear to auscultation bilaterally Cardio Rate: regular rate Rhythm: regular rhythm Heart sounds: S1 normal heart sound present, S2 normal heart sound present and no murmurs GI Inspection: No distended and Yes obesity Palpation (GI): Soft to palpation, nontender and no guarding Skin General skin exam: no rashes or lesions noted and other (warm and dry) Wounds: no wounds Hair: normal Neuro General: patient oriented x3 Extrem General: Yes no pedal edema and Yes no calf tenderness Psych Attitude: cooperative Thought process: Normal thought process present Thought content: Normal thought content present Insight: Good insight present (Psych) Judgement: Good judgement present (Psych) Assessment & Plan Assessment & Plan (1) Morbid obesity: Code(s): E66.01 - Morbid (severe) obesity due to excess calories Plan: This is a 32 yo woman with morbid obesity and probalbe LAURA, pre DM and hypoth who will start SWL program to prepare for bariatric surgery. Blood work, h pylori , CXR, ECG, Abd ULS and UGI have been ordered. She is being scheduled for RD and BH initial consultations. She will start SWL classes and watch at 3 classes before her next appt with Tamar. Will order SS also 1. Adequate sleep of 7-8 hours per night discussed, no caffeine after 3pm. 2. Healthy meal plan - stop skipping meals and stop all sweetened drinks, stop all fast food and snacking All meals/MR's need to take 20 minutes to complete coffee at home with 1% milk 8am - 30 gram shake 11 am - yogurt 2:30 pm-shake 5:30 - shake 8:30 pm- dinner of 6 oz lean protein, 6 oz vegetable, 1 serving fruit 10:30 pm bar if needed Exercise - Cardio 4 d week = treadmill at speed 3.0, incline 2 - 6 - to burn 350 calories OR TBP or LS 2miles The importance of avoiding and breast feeding for at least 18 months after bariatric surgery was discussed in the information session and was reinforced today. WILL HAVE TARIFF SUPERVISOR APPT OCT FOR conteraception Pt will purchase body composition analyzer (recommended list given to patient) and weight herself weekly. Next appt with me in 3 weeks. Text me with any questions and weekly weights. Patient is morbidly obese and is not considered stable at this time.?I spent a total of 60 minutes reviewing/updating records, examining the patient and counseling the patient on weight management as detailed above. (2) Hypothyroid: Code(s): E03.9 - Hypothyroidism, unspecified (3) Pre-diabetes: Code(s): R73.03 - Prediabetes (4) Daytime somnolence: Code(s): R40.0 - Somnolence Orders: Orders IRON PROFILE Today E03.9 - Hypothyroidism, unspecified, E66.01 - Morbid (severe) obesity due to excess calories, R40.0 - Somnolence, R73.03 - Prediabetes, Z01.818 - Encounter for other preprocedural examination Comprehensive Met. Panel Today E03.9 - Hypothyroidism, unspecified, E66.01 - Morbid (severe) obesity due to excess calories, R40.0 - Somnolence, R73.03 - Prediabetes, Z01.818 - Encounter for other preprocedural examination C Reactive Protein Today E03.9 - Hypothyroidism, unspecified, E66.01 - Morbid (severe) obesity due to excess calories, R40.0 - Somnolence, R73.03 - Prediabetes, Z01.818 - Encounter for other preprocedural examination Ferritin Today E03.9 - Hypothyroidism, unspecified, E66.01 - Morbid (severe) obesity due to excess calories, R40.0 - Somnolence, R73.03 - Prediabetes, Z01.818 - Encounter for other preprocedural examination PTHI Today E03.9 - Hypothyroidism, unspecified, E66.01 - Morbid (severe) obesity due to excess calories, R40.0 - Somnolence, R73.03 - Prediabetes, Z01.818 - Encounter for other preprocedural examination H Pylori Breath Test Today E03.9 - Hypothyroidism, unspecified, E66.01 - Morbid (severe) obesity due to excess calories, R40.0 - Somnolence, R73.03 - Prediabetes, Z01.818 - Encounter for other preprocedural examination Vitamin D 25-OH Total Today E03.9 - Hypothyroidism, unspecified, E66.01 - Morbid (severe) obesity due to excess calories, R40.0 - Somnolence, R73.03 - Prediabetes, Z01.818 - Encounter for other preprocedural examination FL upper GI w air Today E03.9 - Hypothyroidism, unspecified, E66.01 - Morbid (severe) obesity due to excess calories, R40.0 - Somnolence, R73.03 - Prediabetes, Z01.818 - Encounter for other preprocedural examination RT home sleep study Today E03.9 - Hypothyroidism, unspecified, E66.01 - Morbid (severe) obesity due to excess calories, R40.0 - Somnolence, R73.03 - Prediabetes, Z01.818 - Encounter for other preprocedural examination Insulin Today E03.9 - Hypothyroidism, unspecified, E66.01 - Morbid (severe) obesity due to excess calories, R40.0 - Somnolence, R73.03 - Prediabetes, Z01.818 - Encounter for other preprocedural examination Lipid Panel Today E03.9 - Hypothyroidism, unspecified, E66.01 - Morbid (severe) obesity due to excess calories, R40.0 - Somnolence, R73.03 - Prediabetes, Z01.818 - Encounter for other preprocedural examination Complete Blood Count Auto Diff Today E03.9 - Hypothyroidism, unspecified, E66.01 - Morbid (severe) obesity due to excess calories, R40.0 - Somnolence, R73.03 - Prediabetes, Z01.818 - Encounter for other preprocedural examination Vitamin B12 and Folate Today E03.9 - Hypothyroidism, unspecified, E66.01 - Morbid (severe) obesity due to excess calories, R40.0 - Somnolence, R73.03 - Prediabetes, Z01.818 - Encounter for other preprocedural examination Zinc Today E03.9 - Hypothyroidism, unspecified, E66.01 - Morbid (severe) obesity due to excess calories, R40.0 - Somnolence, R73.03 - Prediabetes, Z01.818 - Encounter for other preprocedural examination Vitamin B1 Today E03.9 - Hypothyroidism, unspecified, E66.01 - Morbid (severe) obesity due to excess calories, R40.0 - Somnolence, R73.03 - Prediabetes, Z01.818 - Encounter for other preprocedural examination Vitamin A Today E03.9 - Hypothyroidism, unspecified, E66.01 - Morbid (severe) obesity due to excess calories, R40.0 - Somnolence, R73.03 - Prediabetes, Z01.818 - Encounter for other preprocedural examination TSH reflex Free T4 Today E03.9 - Hypothyroidism, unspecified, E66.01 - Morbid (severe) obesity due to excess calories, R40.0 - Somnolence, R73.03 - Prediabetes, Z01.818 - Encounter for other preprocedural examination Hemoglobin A1c Today E03.9 - Hypothyroidism, unspecified, E66.01 - Morbid (severe) obesity due to excess calories, R40.0 - Somnolence, R73.03 - Prediabetes, Z01.818 - Encounter for other preprocedural examination US abdomen comp w elastography Today E03.9 - Hypothyroidism, unspecified, E66.01 - Morbid (severe) obesity due to excess calories, R40.0 - Somnolence, R73.03 - Prediabetes, Z01.818 - Encounter for other preprocedural examination XR chest 2V Today E03.9 - Hypothyroidism, unspecified, E66.01 - Morbid (severe) obesity due to excess calories, R40.0 - Somnolence, R73.03 - Prediabetes, Z01.818 - Encounter for other preprocedural examination ECG 12 lead EKG Today E03.9 - Hypothyroidism, unspecified, E66.01 - Morbid (severe) obesity due to excess calories, R40.0 - Somnolence, R73.03 - Prediabetes, Z01.818 - Encounter for other preprocedural examination Referrals Behavioral Health Referral E03.9 - Hypothyroidism, unspecified, E66.01 - Morbid (severe) obesity due to excess calories, R40.0 - Somnolence, R73.03 - Prediabetes, Z01.818 - Encounter for other preprocedural examination Nutrition/Dietitian Referral E03.9 - Hypothyroidism, unspecified, E66.01 - Morbid (severe) obesity due to excess calories, R40.0 - Somnolence, R73.03 - Prediabetes, Z01.818 - Encounter for other preprocedural examination Coding Level of Care Code New Pt Level 5 (15712) Diagnoses Morbid obesity E66.01 Hypothyroid E03.9 Pre-diabetes R73.03 Daytime somnolence R40.0
[2023-07-06 13:05] VITALS: BP 140/64; PULSE 100; RESP 16; TEMP 36.7; O2SAT 98; BMI 56.4
== END 2023-07-06 14:11 | disposition home or self-care (01) ==
PROVIDERS: Visit Provider Physician Assistant
DX: E66.01 Morbid (severe) obesity due to excess calories (principal); Z68.43 Body mass index [BMI] 50.0-59.9, adult; E03.9 Hypothyroidism, unspecified; R73.03 Prediabetes; R40.0 Somnolence
CPT/HCPCS: 99205

== ENCOUNTER → 2023-07-06 12:50 | Outpatient (BNVA) | payer OTHER, SELFPAY | PROVIDERS: Visit Provider Physician Assistant ==

== ENCOUNTER 2023-08-03 13:52 | Outpatient (AMB) | payer OTHER, SELFPAY ==
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
== END 2023-08-03 13:57 | disposition home or self-care (01) ==
LOC: HO.HBS 13:53
PROVIDERS: Visit Provider Dietitian, Registered
DX: E66.01 Morbid (severe) obesity due to excess calories (principal)

== ENCOUNTER → 2023-08-03 13:52 | Outpatient (BNVA) | payer OTHER, SELFPAY | PROVIDERS: Visit Provider Dietitian, Registered | DX: E66.01 Morbid (severe) obesity due to excess calories (principal) | CPT/HCPCS: 97802 ==

== ENCOUNTER → 2023-08-24 12:43 | Outpatient (REF) | payer OTHER, SELFPAY | LOC: HO.SL 12:43 | PROVIDERS: Visit Provider Physician Assistant | DX: G47.33 Obstructive sleep apnea (adult) (pediatric) (principal); E66.01 Morbid (severe) obesity due to excess calories; R40.0 Somnolence | CPT/HCPCS: 95806 ==

== ENCOUNTER → 2023-08-24 13:15 | Outpatient (BNV) | payer OTHER, SELFPAY | PROVIDERS: Visit Provider Internal Medicine | DX: G47.33 Obstructive sleep apnea (adult) (pediatric) (principal) | CPT/HCPCS: 95806 ==

== ENCOUNTER 2023-08-31 13:35 | Outpatient (REF) | payer OTHER, SELFPAY ==
--- NOTE | ~2023-08-31 | XR_ITS ---
EXAMINATION: XR CHEST CLINICAL INFORMATION: Reason for Exam E66.01 - Morbid (severe) obesity due to excess calories COMPARISON: Chest radiograph 10/19/2022 TECHNIQUE: 2 views of the chest FINDINGS: Lines and tubes: None. Clear lungs. No pleural effusion. No pneumothorax. Unchanged cardiomediastinal silhouette. XR/XR chest 2V IMPRESSION: * Clear lungs.
--- NOTE | 2023-08-31 15:16 | ECG_ITS ---
Test Reason : morbid obesity Blood Pressure : / mmHG Vent. Rate : 085 BPM Atrial Rate : 085 BPM P-R Int : 152 ms QRS Dur : 076 ms QT Int : 378 ms P-R-T Axes : 049 058 023 degrees QTc Int : 449 ms Normal sinus rhythm Normal ECG When compared with ECG of 19-OCT-2022 17:38, No significant change was found Referred By: Dory Ozuna Electronically Signed By:DEVEN JUAN MD
[2023-08-31 15:29] LABS: MANUAL DIFF FLAG NO
[2023-08-31 16:31] LABS: Basophils Percent Auto 0.3 % (0-2); Eosinophils Absolute Auto 0.1 X10*3/uL (0.0-0.4); Hematocrit 40.6 % (37.0-47.0); Hemoglobin 12.6 g/dl (12.0-16.0); Imm Gran Abs Auto 0.07 X10*3/uL (0.00-0.03); Imm Gran Pct Auto 0.6 % (0.0-0.4); Lymphocytes Percent Auto 23.7 % (20-40); Mean Corpuscular Hemoglobin 28.4 pg (27.0-33.0); Mean Corpuscular Volume 91.4 fL (80.0-98.0); Mean Platelet Volume 11.4 fL (9.4-12.3); Monocytes Absolute Auto 0.6 X10*3/uL (0.1-1.2); Neutrophils Absolute Auto 8.7 x10*3/uL (2.0-8.3); Neutrophils Percent Auto 69.4 % (45-73); Platelet Count 328 X10*3/uL (160-400); Red Blood Count 4.44 X10*6/uL (4.20-5.50); Red Cell Distribution Width 12.8 % (11.0-16.0); White Blood Count 12.5 X10*3/uL (4.8-10.8)
[2023-08-31 16:57] LABS: Estimated Average Glucose 105 mg/dL; Hemoglobin A1c % 5.3 % (<6.0)
[2023-08-31 17:05] LABS: Alanine Aminotransferase 26 U/L (0-31); Alkaline Phosphatase 78 U/L (39-117); Anion Gap 12 (12-20); Aspartate Amino Transferase 24 U/L (5-31); Bilirubin Total 0.6 mg/dL (0.0-1.0); Blood Urea Nitrogen 8 mg/dL (9-16); C Reactive Protein 3.87 mg/dL (< or = 0.50); Calcium 9.2 mg/dL (8.4-10.2); Carbon Dioxide 27 mmol/L (22-29); Chloride 103 mmol/L (96-108); Cholesterol 199 mg/dL (<200); Estimated Glomerular Filt Rate > 60; Glucose Random 83 mg/dL (60-115); HDL Cholesterol 41 mg/dL (>40); Iron 67 mcg/dL (30-160); LDL Cholesterol Calculated 133 mg/dL (<100); Percent Iron Saturation 28 % (15-50); Potassium 3.6 mmol/L (3.3-5.1); Sodium 138 mmol/L (135-145); Total Iron Binding Capacity 239 mcg/dL (228-428); Triglycerides 127 mg/dL (<150); Unsaturated Iron Binding 172 ug/dL
[2023-08-31 17:18] LABS: Ferritin 78 ng/mL (10-122); Insulin 23 uU/mL (2-29); TSH reflex Free T4 1.91 uIU/mL (0.32-4.0); Vitamin D 25-OH Total 29.3 ng/mL (>30)
[2023-08-31 17:36] LABS: Folate 14.9 ng/mL (> or = 4.0); Vitamin B12 896 pg/mL (200-900)
[2023-09-01 15:13] LABS: Calcium (PTHI) 9.1 mg/dL (8.6-10.2); PTHI 45 pg/mL (16-77)
[2023-09-04 16:24] LABS: Zinc 69 mcg/dL (60-130)
[2023-09-05 04:49] LABS: Vitamin A 28 mcg/dL (38-98)
[2023-09-07 14:14] LABS: Vitamin B1 12 nmol/L (8-30)
== END 2023-08-31 13:36 | disposition home or self-care (01) ==
LOC: HO.LAB 13:35
PROVIDERS: Absent Provider Physician Assistant; Visit Provider Dietitian, Registered
DX: Z01.818 Encounter for other preprocedural examination (principal); E66.01 Morbid (severe) obesity due to excess calories; E03.9 Hypothyroidism, unspecified; R73.03 Prediabetes; R40.0 Somnolence; Z71.3 Dietary counseling and surveillance
CPT/HCPCS: 36415; 71046; 80053; 80061; 82306; 82607; 82728; 82746; 83036; 83525; 83540; 83970; 84425; 84443; 84590; 84630; 85025; 86140; 93005; 97803

== ENCOUNTER 2023-09-14 13:50 | Outpatient (AMB) | payer OTHER, SELFPAY ==
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
== END 2023-09-14 15:49 | disposition home or self-care (01) ==
LOC: HO.HBST 13:51
PROVIDERS: Visit Provider Counselor Mental Health
DX: F90.9 Attention-deficit hyperactivity disorder, unspecified type (principal); F43.9 Reaction to severe stress, unspecified; F50.81 Binge eating disorder
CPT/HCPCS: 90791

== ENCOUNTER → 2023-09-14 13:50 | Outpatient (BNVA) | payer OTHER, SELFPAY | PROVIDERS: Visit Provider Counselor Mental Health ==

== ENCOUNTER 2023-10-05 10:22 | Outpatient (REF) | payer OTHER, SELFPAY ==
[2023-10-06 13:43] LABS: H Pylori Breath Test Negative (Negative)
== END 2023-10-05 10:23 | disposition home or self-care (01) ==
LOC: HO.LNP 10:22
PROVIDERS: Visit Provider Physician Assistant
DX: Z01.818 Encounter for other preprocedural examination (principal); E66.01 Morbid (severe) obesity due to excess calories; G47.33 Obstructive sleep apnea (adult) (pediatric); F50.81 Binge eating disorder; R40.0 Somnolence; R73.03 Prediabetes
CPT/HCPCS: 83013; 99211; 99212

== ENCOUNTER 2023-10-05 10:22 | Outpatient (AMB) | payer OTHER, SELFPAY ==
--- NOTE | 2023-10-05 08:45 | A.OFFVIS_ITS ---
Intake VS Expanded 10/05/23 10:45 BP 134/63 Blood Pressure Location Rt brachial Blood Pressure Position Sitting Pulse 79 Pulse Source Pulse Oximeter Temp 97.9 F Temperature Source Temporal Artery Scan Pulse Oximetry 99 Oxygen Delivery Method Room Air Height 5 ft 4 in Weight 314 lb BMI 53.9 Body Fat % 49.6 Body Fat Mass 155.8 Fat Free Mass 158.0 Visceral Fat Rating 17.0 Body Water % 36.1 Body Water Mass 113.4 Muscle Mass/Score 150.2 Basal Metabolic Rate/Score 2,306 Intake Visit Reasons: VIDEO F/U SWL Allergies amoxicillin [AMOXICILLIN] Allergy (Intermediate, Verified 10/05/23 10:39) HIVES codeine [CODEINE] Allergy (Intermediate, Verified 10/05/23 10:39) RASH latex [LATEX] Allergy (Intermediate, Verified 10/05/23 10:39) RED PUFFY Penicillins [PENICILLINS] Allergy (Intermediate, Verified 10/05/23 10:39) HIVES From KEFLEX Allergy (Intermediate, Uncoded 07/06/23 12:55) HIVES HPI HPI Comments History of Present Illness Details This is the patients second appt for SWL. Starting weight was 328.8 lbs on 07/06/23. TBWL is 14.8 lbs or 4.5 % TBWL. Patient has seen Tong and has revealed significant trauma history and present financial constraints making her adherence to our meal and exercise programs a struggle for her. Lots of family illnesses including, patient, everyones better now. Meal plan: doesn't like protein bars, doesn't like fruit flavors - tried a few - friend makes one. coffee - black no sweetener - likes it this way - having less this way 9am - cottage cheese or yogurt - 2 straw berries 10 am - shake - Isopure powder mixed wit h water 2pm - salad with tuna - from a store, n o dressing. water 5-7pm - if working has 6 oz chicken or s teak with vegetables/salad and if not working has protein and vegetables bed at 10 pm, wakes at 7-8 am. Exercise plan:dance videos at home - daily x 1 hour- bourne 700 calories ?? Pre op work up completed as follows: SWL classes - 0/8 appts - will be seen again, needs to be scheduled RD appts - will be seen again H pylori - today Labs - vit A and D deficient, mildy elevated LDL CXR and ECG - both normal ULS and UGI - need to be rescheduled Contraception- no male sex partner SS - Severe LAURA - has pulm appt today [facility] Surgical History (Updated 07/06/23 @ 12:57 by PETRONA Richmond) History of hip surgery History of tonsillectomy Family History (Updated 07/06/23 @ 13:00 by PETRONA Richmond) Mother No problems noted. Father No problems noted. Social History (Updated 07/06/23 @ 13:01 by PETRONA Richmond) Household Members: None Housing: Apartment Alcohol intake: never Patient Tobacco Use Status: Never used Tobacco Substance Use Type: Marijuana Assessment & Plan Assessment & Plan (1) Morbid obesity: Code(s): E66.01 - Morbid (severe) obesity due to excess calories Plan: Patient has made many changes and is doing very well. I reminded her that I will change things at every appt - not because she's not doing well but because she is progressing. Meal plan -no bars for now - will show Tamar home made bar recipe to see if it is appropriate needs more clear intervals between meals 9am - coffee with cottage cheese or yogurt 12pm - salad with protein - we discussed her making it herself and not from store - will save $10 per day. Needs help organizing her day to do this. 3-4 pm - shake 6-7 pm- dinner at work, is stopping bottled dressings. Exercise - use health tracker to figure out how many calories she bourne with the dance video. Try TBP videos and monitor calories burned. -- Text me this comparison for more help with adequate exercise. UGI/ULS are being rescheduled today, and appts made with Yuli Boyle. Does not feel that she can weigh herself weekly at this time, needs more time. Will text me progress weekly, next appt with me in office in 3 weeks. Patient is morbidly obese and is not considered stable at this time. I spent 30 minutes in total with patient reviewing/updating records, examining the patient and counseling the patient on weight management as detailed above. (2) Severe binge-eating disorder: Code(s): F50.81 - Binge eating disorder Plan: Continue appts with Myron (3) Obstructive sleep apnea: Code(s): G47.33 - Obstructive sleep apnea (adult) (pediatric) Plan: Pulmonary appt today for CPAP fitting. Coding Level of Care Code Est Pt Level 4 (11241) Diagnoses Morbid obesity E66.01 Severe binge-eating disorder F50.81 Obstructive sleep apnea G47.33
[2023-10-05 10:45] VITALS: BP 134/63; PULSE 79; TEMP 36.6; O2SAT 99; BMI 53.9
== END 2023-10-05 11:21 | disposition home or self-care (01) ==
PROVIDERS: Visit Provider Physician Assistant
DX: E66.01 Morbid (severe) obesity due to excess calories (principal); Z68.43 Body mass index [BMI] 50.0-59.9, adult; F50.81 Binge eating disorder; G47.33 Obstructive sleep apnea (adult) (pediatric)
CPT/HCPCS: 99213

== ENCOUNTER 2023-10-05 14:21 | Outpatient (AMB) | payer OTHER, SELFPAY ==
--- NOTE | 2023-10-05 14:25 | MHC.OFFVIS ---
Intake Vital Signs 10/05/23 14:26 Height 5 ft 4 in Weight 322 lb 15.635 oz BMI 55.4 BP 110/82 Blood Pressure Location Lt radial Position Sitting Pulse 83 Pulse Source Pulse Oximeter Pulse Oximetry (%) 98 Oxygen Delivery Method Room Air Intake Visit Reasons: nayely Intake Note: pt is here as a new patient for follow up of sleep study. She states, snores, chokes, very dry throat,gasps for air. 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 Allergies amoxicillin [AMOXICILLIN] Allergy (Intermediate, Verified 10/05/23 15:04) HIVES codeine [CODEINE] Allergy (Intermediate, Verified 10/05/23 15:04) RASH latex [LATEX] Allergy (Intermediate, Verified 10/05/23 15:04) RED PUFFY Penicillins [PENICILLINS] Allergy (Intermediate, Verified 10/05/23 15:04) HIVES From KEFLEX Allergy (Intermediate, Uncoded 10/05/23 15:04) HIVES Medication List - Last Reconciled 10/05/23 by Dany Fairbanks MD ibuprofen 800 mg PO Q8H PRN levothyroxine 75 mcg PO QAM metformin 500 mg PO BID OFY-gies-HL-omega 3-fat com #1 27-1-300 mg caps PO vitamin A palmitate 6,000 mcg (2 x 3,000 mcg (10,000 unit)) PO DAILY 2 weeks vitamin E mixed units PO Do you need a note to return to daycare/school/sports/work: No HPI nayely HPI Details 32 YEARS OLD FEMALE IS BEING SEEN FOR THE 1ST TIME, BECAUSE OF ABNORMAL SLEEP TEST. SHE HAS BEEN MORBIDLY OBESE FOR THE PAST MANY YEARS. NOW SHE HAS JOIN THE WEIGHT MANAGEMENT PROGRAM AND IS PROGRESSING WELL. SHE HAS ALREADY LOST ABOUT 20-30 LB OF WEIGHT BUT SHE HAS TO LOSE ANOTHER 30-35 LB BEFORE SHE CAN HAVE BARIATRIC SURGERY. SHE HAS HISTORY OF NOT ABLE TO SLEEP FOR THE LAST 5-6 YEARS. SHE WAKES UP FREQUENTLY WITH GASPING LIKE FEELING. SHE CANNOT LIE FLAT AND SLEEP. TRIES TO SLEEP IN LATERAL POSITION. SHE FEELS TIRED AND SLEEPY DURING THE DAYTIME. [facility] Surgical History History of hip surgery History of tonsillectomy Family History Mother No problems noted. Father No problems noted. Social History Household Members: None Housing: Apartment Alcohol intake: never Patient Tobacco Use Status: Never used Tobacco Substance Use Type: Marijuana Review of Systems Const All systems reviewed & are unremarkable except as noted in HPI and below Reports snoring Eyes Reports no additional complaints ENT Reports no additional complaints Card Denies chest pain, Denies irregular heart rhythm, Denies leg edema and Reports dyspnea on exertion Resp Reports dyspnea on exertion and Reports snoring GI Reports no additional complaints Reports no additional complaints Musc Reports no additional complaints Skin/Breast Reports system reviewed and no additional complaints, except as documented Neuro Reports no additional complaints Psych Reports no additional complaints Endo Reports other (HYPOTHYROIDISM BEING TREATED) Physical Exam Vital Signs: Last Vital Signs Pulse 83 10/05/23 14:26 BP 110/82 10/05/23 14:26 Pulse Ox 98 10/05/23 14:26 Oxygen Delivery Method Room Air 10/05/23 14:26 BMI result Body Mass Index 55.4 Const Other: SHE IS SUPER OBESE WITH A ROUND FACE AND SHORT NECK. General: comfortable, no acute distress, alert and awake Orientation/consciousness: patient oriented x3 HEENT Head: Yes normal to inspection General nose exam: No nasal polyps present and No nasal discharge present Face and sinus: Yes sinuses nontender Mouth: oropharynx normal (NARROW AND CROWDED, MALLAMPATI CLASS 4) Throat: Yes posterior oropharynx normal Eyes General: appearance normal, both eyes and all related structures Neck Neck: Yes normal visual inspection, Yes no lymphadenopathy, Yes trachea midline, Yes no JVD and Yes other (NECK SIZE 18-1/2 INCH) Thyroid: Thyroid normal and other Chest Chest palpation & inspection: normal inspection of the chest, normal palpation of entire chest wall and no tenderness Resp Other: PERCUSSION NOTE NOT PERCEPTIBLE BECAUSE OF THE THICK CHEST WALL BREATH SOUNDS ARE DECREASED OVER THE BASILAR AREAS. NO WHEEZES OR CREPITATIONS ARE HEARD. Cardio Palpation: normal PMI Rate: regular rate Rhythm: regular rhythm Heart sounds: no gallops and no murmurs GI Palpation (GI): Soft to palpation, Tenderness to palpation present (GI), No hepatosplenomegaly present, Palpable mass present and Other GI palpation findings present (ABDOMEN IS MARKEDLY OBESE AND PROTUBERANT) Auscultation: normal bowel sounds Back/Spine/Pelvis Thoracic/Lumbar Spine: thoracic and lumbar spine normal to inspection and thoraco-lumbar ROM limited Skin General skin exam: no rashes or lesions noted Neuro General: patient oriented x3 and no focal motor deficits Cranial nerves: Yes CN's II-XII intact bilaterally Extrem General: Yes normal to inspection, Yes no clubbing, cyanosis or edema and Yes no calf tenderness Psych Appearance: grossly normal and well kempt Speech and movement: Normal speech and movement present Results Reviewed Results Reviewed: HOME-BASED SLEEP STUDY ON 07/25/2023 SHOWS THE FOLLOWING. TOTAL SLEEP TIME AHI 21, SUPINE POSITION AHI 26 LATERAL POSITION AHI 4.9 SNORING FOR 80% OF THE SLEEP TIME. NOCTURNAL HYPOXEMIA WITH LOWEST O2 SAT 63% AND O2 SAT BELOW 88% FOR 15 MINUTES Assessment & Plan Assessment & Plan (1) Morbid obesity: Comment: SHE HAS SUPER MORBID OBESITY WITH CURRENT BMI 55.4. Code(s): E66.01 - Morbid (severe) obesity due to excess calories Plan: TALKED TO HER ABOUT OBESITY AND ITS RELATIONSHIP TO SLEEP APNEA. ENCOURAGED HER TO CONTINUE WITH THE WEIGHT MANAGEMENT PROGRAM. (2) Obstructive sleep apnea: Comment: SHE HAS MODERATELY SEVERE OBSTRUCTIVE SLEEP APNEA. SHE IS VERY SYMPTOMATIC AT THIS TIME. SHE WOULD BENEFIT FROM USE OF CPAP. Code(s): G47.33 - Obstructive sleep apnea (adult) (pediatric) Plan: HAD A LONG DISCUSSION AND SHE WAS EDUCATED ABOUT. THE TREATMENT OF SLEEP APNEA THE BEST OPTION IS TO START USING CPAP, . AND SHE IS AGREEABLE WE WILL START HER ON CPAP WITH AUTO PAP MODE AND PRESSURE SETTING 6-20 CM, AND SHE WILL BE FOLLOWED UP CLOSELY FOR COMPLIANCE AND BENEFITS. I DID REASSURE HER THAT HER SLEEP QUALITY WILL DEFINITELY IMPROVED. I ALSO STATED THAT ONCE SHE IS ABLE TO LOSE SIGNIFICANT WEIGHT SHE WILL NOT NEED THE CPAP AT THAT POINT. Coding Level of Care Code New Pt Level 3 (13216) Diagnoses Morbid obesity E66.01 Obstructive sleep apnea G47.33
[2023-10-05 14:26] VITALS: BP 110/82; PULSE 83; O2SAT 98; BMI 55.4
== END 2023-10-05 15:00 | disposition home or self-care (01) ==
PROVIDERS: Referring Provider Physician Assistant; Visit Provider Internal Medicine
DX: G47.33 Obstructive sleep apnea (adult) (pediatric) (principal); E66.01 Morbid (severe) obesity due to excess calories; Z68.43 Body mass index [BMI] 50.0-59.9, adult
CPT/HCPCS: 99213

== ENCOUNTER 2023-11-09 | Outpatient (REF) | payer OTHER, SELFPAY | END 2023-11-09 00:01 | disposition home or self-care (01) | LOC: CF | PROVIDERS: Visit Provider Dietitian, Registered | DX: E66.01 Morbid (severe) obesity due to excess calories (principal); Z68.43 Body mass index [BMI] 50.0-59.9, adult; Z71.3 Dietary counseling and surveillance | CPT/HCPCS: 97803 ==

== ENCOUNTER 2023-11-09 14:04 | Outpatient (AMB) | payer OTHER, SELFPAY ==
--- NOTE | 2023-11-09 14:04 | A.OFFVIS_ITS ---
Intake VS Expanded 11/09/23 14:05 Height 5 ft 4 in Weight 312 lb BMI 53.5 Intake Visit Reasons: VIDEO F/U SWL Allergies amoxicillin [AMOXICILLIN] Allergy (Intermediate, Verified 10/05/23 15:04) HIVES codeine [CODEINE] Allergy (Intermediate, Verified 10/05/23 15:04) RASH latex [LATEX] Allergy (Intermediate, Verified 10/05/23 15:04) RED PUFFY Penicillins [PENICILLINS] Allergy (Intermediate, Verified 10/05/23 15:04) HIVES From KEFLEX Allergy (Intermediate, Uncoded 10/05/23 15:04) HIVES HPI Nutrition Presentation Reason for consult elevated BMI Diet Assmnt Details 42g protein shake Core power; but wants to also get the Orgain lunch: salad dinner: 6oz piece of protein, steamed vegetables, salad Pt asks if therapy appointment is necessary , dislikes therapy . she states she is doing great with the nutrition plan. missed several appointments because she was sick with 3 different illness's back to back. feeling better now. she states she really wants to continue in the program Last nutrition appointment : Met someone at work who had bariatric surgery and has lost from 420lbs to 200lbs. is a big motivator for her. also her cousin just uncovered significant barriers, trauma, stress in her life. Her father has cancer, her brother locks himself in his room, her mother is sick so she supports the entire family. Financially, she is really struggling. Had to buy oil which was a major expense. Was going to buy all her shakes/bars but found out the total and couldn't . We talked about using protein powder, but she does not like the taste the water at her house, so she would have to purchase bottled water. She currently does her grocery shopping at [employer] - today we talked about some affordable grocery markets in the area. Patient talks about her previous traumas in life, which have influenced the way she handles herself in situations such as this program. She states she is very sensitive and does better with a gentle approach. She reports she is feeling very defeated. she wants to change but feels so low and reports she might be depressed. 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 She decided to discontinue this career path due to the influence on her weight) Dietary counseling reduction Diagnosis Nutrition problem #1 overweight/obesity As related to (etiology) #1 excess energy intake and physical inactivity As evidenced by (sign/symptom) #1 high BMI Monitoring/Goals Nutrition problem monitoring total energy intake, level of knowledge/skill, total PRO intake, total CHO intake and weight Outcome progress verbalized understanding Learning/Education Readiness to learn good Stages of change action Educational materials provided Yes Most Recent Diabetes Results: No Data to Display [facility] Surgical History History of hip surgery History of tonsillectomy Family History Mother No problems noted. Father No problems noted. Social History Household Members: None Housing: Apartment Alcohol intake: never Patient Tobacco Use Status: Never used Tobacco Substance Use Type: Marijuana Assessment & Plan Assessment & Plan (1) Morbid (severe) obesity due to excess calories: Code(s): E66.01 - Morbid (severe) obesity due to excess calories Plan pt will have appt with Dory as scheduled 11/20 . will need appt with me in 4-6 weeks to help support her as she has more time with dietary changes. did not discuss classes. Telehealth Telehealth Location of provider rendering services: practice address Location of patient: address on file Patient Identification confirmed using: Name, : Yes Telehealth method: voice only Patient verbally consented to treatment: Yes Patient verbally consented to billing insurance company: Yes Patient informed of any privacy concerns related to visit: Yes Minutes spent on Phone/Video with Pt.: 25 Coding Level of Care Code Nutr Indiv Subseq (65339) Diagnoses Morbid (severe) obesity due to excess calories E66.01 Time Spent (min) 25
[2023-11-09 14:05] VITALS: BMI 53.5
== END 2023-11-09 14:24 | disposition home or self-care (01) ==
LOC: HO.HBS 14:04
PROVIDERS: Visit Provider Dietitian, Registered
DX: E66.01 Morbid (severe) obesity due to excess calories (principal)

== ENCOUNTER 2023-11-20 14:48 | Outpatient (AMB) | payer OTHER, SELFPAY ==
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
[2023-11-20 15:05] VITALS: BP 138/71; PULSE 92; TEMP 36.4; O2SAT 99; BMI 51.2
== END 2023-11-20 15:42 | disposition home or self-care (01) ==
PROVIDERS: Visit Provider Physician Assistant
DX: E66.01 Morbid (severe) obesity due to excess calories (principal); Z68.43 Body mass index [BMI] 50.0-59.9, adult; F50.81 Binge eating disorder
CPT/HCPCS: 99214

== ENCOUNTER → 2023-11-20 14:48 | Outpatient (BNVA) | payer OTHER, SELFPAY | PROVIDERS: Visit Provider Physician Assistant | DX: E66.01 Morbid (severe) obesity due to excess calories (principal); Z68.43 Body mass index [BMI] 50.0-59.9, adult; F50.81 Binge eating disorder | CPT/HCPCS: 99212 ==

== ENCOUNTER 2023-12-11 13:30 | Outpatient (AMB) | payer OTHER, SELFPAY ==
--- NOTE | 2023-12-11 13:04 | A.OFFVIS_ITS ---
Intake Intake Visit Reasons: VIDEO F/U SWL Allergies amoxicillin [AMOXICILLIN] Allergy (Intermediate, Verified 11/20/23 15:08) HIVES codeine [CODEINE] Allergy (Intermediate, Verified 11/20/23 15:08) RASH latex [LATEX] Allergy (Intermediate, Verified 11/20/23 15:08) RED PUFFY Penicillins [PENICILLINS] Allergy (Intermediate, Verified 11/20/23 15:08) HIVES From KEFLEX Allergy (Intermediate, Uncoded 10/05/23 15:04) HIVES HPI HPI Comments History of Present Illness Details SWL follow up, [employer] weight of 328.8. She does not have her weight today. Since her last appt 3 weeks ago she still does not have a scale yet. She states it is coming in the mail tomorrow. Pre op work up completed as follows: [facility] classes - BH appts - will be seen again, follow up later today RD appts - will be seen again - not scheduled H pylori - negative Labs - vit A and D deficient, mildy elevated LDL CXR and ECG - both normal ULS- needs to be rescheduled UGI - 12/20 Contraception- no male sex partner SS - Severe LAURA - now using CPAP PFSH Surgical History History of hip surgery History of tonsillectomy Family History Mother No problems noted. Father No problems noted. Social History Household Members: None Housing: Apartment Alcohol intake: never Patient Tobacco Use Status: Never used Tobacco Substance Use Type: Marijuana Assessment & Plan Assessment & Plan (1) Morbid obesity: Comment: SHE HAS SUPER MORBID OBESITY WITH CURRENT BMI 55.4. Code(s): E66.01 - Morbid (severe) obesity due to excess calories Plan: Pt will text me her weight once she has a scale and we will then schedule appropriate follow up. Meal and exercise plans were not discussed today. Patient is still morbidly obese and is not considered stable at this time. I spent 5 minutes in total speaking with the patient via video conference counseling , reviewing records and charting in patients chart. . Telehealth Telehealth Location of provider rendering services: practice address Location of patient: address on file Patient Identification confirmed using: Name, : Yes Telehealth method: video Patient verbally consented to treatment: Yes Patient verbally consented to billing insurance company: Yes Patient informed of any privacy concerns related to visit: Yes Coding Level of Care Code Tele Est Pt Level 2 (01655) Diagnoses Morbid obesity E66.01
== END 2023-12-11 13:50 | disposition home or self-care (01) ==
LOC: HO.HBS 13:40
PROVIDERS: PCP Internal Medicine; Visit Provider Physician Assistant
DX: E66.01 Morbid (severe) obesity due to excess calories (principal)
CPT/HCPCS: 99212

== ENCOUNTER → 2023-12-11 13:30 | Outpatient (BNVA) | payer OTHER, SELFPAY | PROVIDERS: PCP Internal Medicine; Visit Provider Physician Assistant ==

== ENCOUNTER 2023-12-11 16:01 | Outpatient (AMB) | payer OTHER, SELFPAY ==
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
== END 2023-12-11 16:19 | disposition home or self-care (01) ==
LOC: HO.HBST 16:05
PROVIDERS: PCP Internal Medicine; Visit Provider Counselor Mental Health
DX: F90.9 Attention-deficit hyperactivity disorder, unspecified type (principal); F43.9 Reaction to severe stress, unspecified; F50.81 Binge eating disorder
CPT/HCPCS: 90834

== ENCOUNTER 2024-06-06 16:02 | Emergency (ER) | payer OTHER, SELFPAY ==
--- NOTE | ~2024-06-06 | XR_ITS ---
EXAMINATION: XR CHEST CLINICAL INFORMATION: Left-sided chest pressure. COMPARISON: Chest x-ray August 31, 2023 TECHNIQUE: 2 views of the chest were obtained. FINDINGS: No significant abnormality is noted involving the heart, lungs, mediastinum, bony thorax or soft tissues. XR/XR chest 2V IMPRESSION: Unremarkable examination. Electronically signed by: Mina Anderson MD 06/06/2024 04:41 PM EDT RP
--- NOTE | 2024-06-06 16:05 | ECG_ITS ---
Test Reason : CHEST PAIN Blood Pressure : / mmHG Vent. Rate : 091 BPM Atrial Rate : 091 BPM P-R Int : 146 ms QRS Dur : 074 ms QT Int : 364 ms P-R-T Axes : 036 028 015 degrees QTc Int : 447 ms Normal sinus rhythm Normal ECG When compared with ECG of 31-AUG-2023 15:26, No significant change was found Referred By: Generic ED Physician Electronically Signed By:PAMELA PARDO
[2024-06-06 16:17] VITALS: BP 133/84; PULSE 94; RESP 18; TEMP 37; O2SAT 98; BMI 50.2
--- NOTE | 2024-06-06 16:18 | ED_ITS ---
HPI - Chest Pain General Chief Complaint: Chest Pain Stated Complaint: chest pain tingling in left arm Time Seen by Provider: 06/06/24 21:45 Source: patient Mode of arrival: ambulatory Limitations: no limitations History of Present Illness ED Provider: DR. Donahue HPI narrative: 33-year-old female presented for evaluation of left-sided chest pain for 4 days. 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 Patient got concern since yesterday started to feel numbness in the left arm. No SOB, no fever, no chills. Patient declined history of smoking, patient is adopted with no known family history,, no lower extremity swelling or tenderness, no history of PE or DVT. Related Data Home Medications ?Medication ?Instructions ?Recorded ?Confirmed [id number] 3-fat com #1 27 cap PO 05/18/23 mg-1 mg-300 mg capsule ibuprofen 600 mg tablet 800 mg PO Q8H PRN pain 05/18/23 levothyroxine 75 mcg tablet 75 mcg PO QAM 05/18/23 metformin 500 mg tablet 500 mg PO BID 05/18/23 vitamin E mixed 400 unit capsule unit PO 10/05/23 Previous Rx's ?Medication ?Instructions ?Recorded vitamin A palmitate 3,000 mcg 6,000 mcg (2 x 3,000 mcg (10,000 09/05/23 (10,000 unit) capsule unit)) PO DAILY 2 weeks #28 caps Allergies Allergy/AdvReac Type Severity Reaction Status Date / Time amoxicillin [AMOXICILLIN] Allergy Intermediate HIVES Verified 06/06/24 16:20 codeine [CODEINE] Allergy Intermediate RASH Verified 06/06/24 16:20 latex [LATEX] Allergy Intermediate RED PUFFY Verified 06/06/24 16:20 Penicillins [PENICILLINS] Allergy Intermediate HIVES Verified 06/06/24 16:20 From KEFLEX Allergy Intermediate HIVES Uncoded 06/06/24 16:20 Review of Systems 2 Review of Systems: All other systems are reviewed and are negative Constitutional: Reports as per HPI and Reports no additional constitutional complaints Eyes: Reports as per HPI and Reports no additional eye complaints Reports system reviewed and no additional complaints, except as documented Cardiovascular: Reports as per HPI and Reports no additional cardiovascular complaints Respiratory: Reports as per HPI and Reports no additional respiratory complaints Gastrointestinal: Reports as per HPI and Reports no additional gastrointestinal complaints Genitourinary: Reports no additional female genitourinary complaints Musculoskeletal: Reports no additional musculoskeletal complaints Skin/Breast: Reports system reviewed and no additional complaints, except as docu Psychiatric: Reports no additional psychiatric complaints Endocrine: Reports no additional endocrine complaints Hematologic/Lymphatic: Reports no additional hematologic/lymphatic complaints Allergic/Immunologic: Reports no additional allergic/immunologic complaints Reports system reviewed and no additional complaints, except as documented and Reports Abnormal speech present [facility] Past Medical History Surgical History History of hip surgery History of tonsillectomy Family History Family History Mother No problems noted. Father No problems noted. Social History Social History Household Members: None Housing: Apartment Alcohol intake: never Patient Tobacco Use Status: Never used Tobacco Smoked in Last 30 Days: Yes Use of substances other than those prescribed or required for medical reasons: No Substance Use Type: Marijuana Advance Directives: No Advance Directives Information Provided: No Do you have a plan to hurt others: No Plan Patient : No Physical Exam 2 Vital Signs: Vital Signs: Last Vital Signs Temp 98.2 F 06/06/24 22:27 Pulse 76 06/06/24 22:27 Resp 16 06/06/24 22:27 BP 94/53 L 06/06/24 22:27 Pulse Ox 98 06/06/24 22:27 O2 Del Method Room Air 06/06/24 22:27 BMI result Body Mass Index 50.2 Vital signs have been reviewed and appear to be correct. Blood pressure elevated. Heart rate normal. Respiratory rate normal. Temperature normal. Oxygen saturation normal. Appearance: Alert. Oriented X3. No acute distress. Head: Normal external exam. Normocephalic. Atraumatic. No Russ signs noted. No raccoon eyes noted Eyes: PERRLA. EOMI. Conjunctiva and sclera normal. Eyelids normal. ENT: TM's Normal. Pharynx normal. Uvula midline. Moist mucous membranes. No trismus noted. No drooling noted. No muffled voice noted. Neck: Normal inspection. Neck supple. FROM. No adenopathy. Thyroid Normal. No meningeal signs. No neck mass noted. CVS: Normal heart rate and rhythm. Heart sound normal. No murmurs noted. Pulses normal throughout. Respiratory: No respiratory distress. Painless inspiration. Breath sounds normal. No wheezes/rales/rhonchi noted. Reproducible tenderness to the left chest wall, No accessory muscle usage noted or decreased air movement noted. Abdomen: Soft and nontender. Bowel sounds normal in all 4 quadrants. No distention noted. No organomegaly noted. No visible injury noted. Back: No CVA tenderness. Full range of motion noted. Skin: Skin warm and dry. Normal skin color. Normal skin turgor. No rashes/lesions/lacerations noted. Extremities: No lower extremity edema. Extremities exhibit normal range of motion. Extremities nontender. Neuro: Oriented X 3. Cranial nerve exam: II-XII are grossly intact No motor deficit. No sensory deficit. Reflexes normal. Course Course Course Narrative: This is a Rapid Medical Examination (RME) performed by Morro Valenzuela PA-C in triage. Full HPI, ROS, assessment and treatment plan per primary provider in the Main ED. 33 yo female hx of ADHD, LAURA here w/ left sided chest pain/ pressure x4 days. pain radiates down left arm. assoc tingling down left arm. admits to increased stress with work. denies ocp use. denies recent travel or long car rides. denies fever, chills, sob, wheezing. + obese female. rrr. lungs clear. Plan: labs, ekg, cxr ordered. Reevaluation(s) Reevaluation #1: Left-sided chest pain for 4 days likely muscular in origin, EKG shows no ischemic changes, patient at low risk for pulmonary embolism was negative D- dimer, chronic leukocytosis, stay x-ray is unremarkable. Time: 23:05 Medical Decision Making Differential Diagnosis Differential Diagnoses: The differential diagnosis associated with the presentation includes (ACS, pulmonary embolism, pleural effusion, pneumonia, pleurisy, electrolyte derangement, severe anemia.) Admission/Observation Consideration of admission/observation: Escalation of care including admission/observation considered Lab Data MDM Lab Attestation statement: I reviewed the patient's lab results. 06/06/24 16:57 06/06/24 16:57 Labs: Lab Results 06/06/24 06/06/24 Range/Units 16:57 22:09 WBC 12.6 H (4.8-10.8) X10*3/uL RBC 4.47 (4.20-5.50) X10*6/uL Hgb 13.2 (12.0-16.0) g/dl Hct 40.9 (37.0-47.0) % MCV 91.5 (80.0-98.0) fL MCH 29.5 (27.0-33.0) pg MCHC 32.3 (31.0-35.0) g/dl RDW 12.9 (11.0-16.0) % Plt Count 312 (160-400) X10*3/uL MPV 10.7 (9.4-12.3) fL Immature Gran % (Auto) 0.3 (0.0-0.4) % Neut % (Auto) 72.6 (45-73) % Lymph % (Auto) 18.9 L (20-40) % [place] % (Auto) 5.7 (2-11) % Eos % (Auto) 2.2 (0-4) % Baso % (Auto) 0.3 (0-2) % Lymph # (Auto) 2.4 (1.2-4.9) X10*3/uL [place] # (Auto) 0.7 (0.1-1.2) X10*3/uL Eos # (Auto) 0.3 (0.0-0.4) X10*3/uL Baso # (Auto) 0.0 (0.0-0.2) X10*3/uL Abs Immat Gran (auto) 0.04 H (0.00-0.03) X10*3/uL Absolute Neuts (auto) 9.1 H (2.0-8.3) x10*3/uL Absolute Nucleated RBC 0.000 (0.0-0.012) X10*3/uL Nucleated RBC % (auto) 0.0 (0.0-0.2) /100WBC D-Dimer High Sensitivty < 150 NG/ML Sodium 138 (135-145) mmol/L Potassium 4.1 (3.3-5.1) mmol/L Chloride 105 (96-108) mmol/L Carbon Dioxide 25 (22-29) mmol/L Anion Gap 12 (12-20) BUN 10 (9-16) mg/dL Creatinine 0.80 (0.5-1.4) mg/dL Estim Creat Clear Calc 135.7 Estimated GFR > 60 Random Glucose 107 (60-115) mg/dL Calcium 9.7 (8.4-10.2) mg/dL Magnesium 2.1 (1.6-2.6) mg/dL Total Bilirubin 0.5 (0.0-1.0) mg/dL AST 17 (5-31) U/L ALT 15 (0-31) U/L Alkaline Phosphatase 69 (39-117) U/L Troponin I High Sens < 2.7 < 2.7 (<3.5-17.0) ng/L Total Protein 7.5 (6.5-8.0) g/dL Albumin 3.9 (3.5-5.0) g/dL Independent Interpretation I performed an independent interpretation of an: Plain X-Ray (Chest: No acute intrathoracic pathology.) Radiology Impression Discussion of test interpretation with radiology: I have reviewed the radiologist's reading. Scores Heart Score History: -0- slightly suspicious ECG: -0- normal Age: -0- < or = 45 Risk factory: -0- no risk factors known Troponin: -0- < or = normal limit Score: 0 Risk: 1.7% [place] DVT Alternative Dx as likely as or more likely than DVT: -2 Score: -2 2-tier Risk: unlikely risk (5%) 3-tier Risk: low risk (3%) Discharge Plan Discharge Clinical Impression: Chest wall pain Patient Disposition: Home, Self-Care Instructions: Chest Wall Pain (ED) Additional Instructions: Take ibuprofen 200 mg ([id number]) every 6 hours if needed for pain. Prescriptions: No Action vitamin A palmitate 3,000 mcg (10,000 unit) capsule 6,000 mcg PO DAILY 14 Days Qty: 28 0RF levothyroxine 75 mcg tablet 75 mcg PO QAM metformin 500 mg tablet 500 mg PO BID ibuprofen 600 mg tablet 800 mg PO Q8H PRN (Reason: pain) [id number] 3-fat com #1 27-1-300 mg capsule PO vitamin E mixed 400 unit capsule PO Referrals: Iman Gray MD [Primary Care Provider] - Print Language: Brazilian
[2024-06-06 17:01] LABS: MANUAL DIFF FLAG NO
[2024-06-06 17:09] LABS: Basophils Percent Auto 0.3 % (0-2); Eosinophils Absolute Auto 0.3 X10*3/uL (0.0-0.4); Eosinophils Percent Auto 2.2 % (0-4); Hematocrit 40.9 % (37.0-47.0); Hemoglobin 13.2 g/dl (12.0-16.0); Imm Gran Abs Auto 0.04 X10*3/uL (0.00-0.03); Imm Gran Pct Auto 0.3 % (0.0-0.4); Lymphocytes Absolute Auto 2.4 X10*3/uL (1.2-4.9); Lymphocytes Percent Auto 18.9 % (20-40); Mean Corpuscular HGB Conc 32.3 g/dl (31.0-35.0); Mean Corpuscular Hemoglobin 29.5 pg (27.0-33.0); Mean Corpuscular Volume 91.5 fL (80.0-98.0); Mean Platelet Volume 10.7 fL (9.4-12.3); Monocytes Absolute Auto 0.7 X10*3/uL (0.1-1.2); Monocytes Percent Auto 5.7 % (2-11); Neutrophils Absolute Auto 9.1 x10*3/uL (2.0-8.3); Neutrophils Percent Auto 72.6 % (45-73); Platelet Count 312 X10*3/uL (160-400); Red Blood Count 4.47 X10*6/uL (4.20-5.50); Red Cell Distribution Width 12.9 % (11.0-16.0); White Blood Count 12.6 X10*3/uL (4.8-10.8)
[2024-06-06 17:17] LABS: Alanine Aminotransferase 15 U/L (0-31); Albumin Level 3.9 g/dL (3.5-5.0); Alkaline Phosphatase 69 U/L (39-117); Anion Gap 12 (12-20); Aspartate Amino Transferase 17 U/L (5-31); Bilirubin Total 0.5 mg/dL (0.0-1.0); Blood Urea Nitrogen 10 mg/dL (9-16); Calcium 9.7 mg/dL (8.4-10.2); Carbon Dioxide 25 mmol/L (22-29); Chloride 105 mmol/L (96-108); Creatinine Clr Calc Pharmacy 135.7; Estimated Glomerular Filt Rate > 60; Glucose Random 107 mg/dL (60-115); Magnesium 2.1 mg/dL (1.6-2.6); Potassium 4.1 mmol/L (3.3-5.1); Sodium 138 mmol/L (135-145); Total Protein 7.5 g/dL (6.5-8.0)
[2024-06-06 17:26] LABS: Troponin-I High Sensitivity < 2.7 ng/L (<3.5-17.0)
[2024-06-06 22:27] VITALS: BP 94/53; PULSE 76; RESP 16; TEMP 36.8; O2SAT 98
[2024-06-06 22:53] LABS: D Dimer High Sensitivity < 150 NG/ML
[2024-06-06 22:55] LABS: Troponin-I High Sensitivity < 2.7 ng/L (<3.5-17.0)
--- NOTE | 2024-06-06 22:57 | PC.NURSE ---
pt from home, a&ox4, respirations even and unlabored. pt reporting onset of left upper chest pain x1 week, reports it has increased the last day and she was worried of a heart attack. pt denies shortness of breath, nausea, vomiting and diarrhea. 22G placed in right hand, labs obtained and sent. pt normal sinus on tele.
[2024-06-06 23:17] VITALS: BP 127/63; PULSE 76; RESP 16; TEMP 36.8; O2SAT 98
== END 2024-06-06 23:17 | disposition home or self-care (01) ==
PROVIDERS: Physician Assistant Medical; Emergency Provider Emergency Medicine; PCP Internal Medicine
DX: R07.89 Other chest pain (principal); E11.9 Type 2 diabetes mellitus without complications; Z79.84 Long term (current) use of oral hypoglycemic drugs; Z79.899 Other long term (current) drug therapy
CPT/HCPCS: 36415; 71046; 80053; 83735; 84484; 85025; 85379; 93005; 99283; 99285

== ENCOUNTER 2024-10-20 00:02 | Emergency (ER) | payer OTHER, SELFPAY ==
--- NOTE | ~2024-10-20 | XR_ITS ---
CLINICAL HISTORY: cough sob 1 view chest x-ray. Comparison: CR/WI/SR - XR CHEST 2V - 06/06/24 16:28 EDT Findings: The lungs appear clear. There is no consolidation, effusion, or nodule identified. Cardiomediastinal silhouette is within normal limits. IMPRESSION: No acute cardiopulmonary abnormality. This document has been electronically signed by: Ken Manuel MD on 10/20/2024 00:53:32
[2024-10-20 00:07] VITALS: BP 113/82; PULSE 95; RESP 18; TEMP 36.8; O2SAT 95; BMI 50.1
[2024-10-20 01:12] LABS: Influenza A PCR NEGATIVE (Negative); Influenza B PCR NEGATIVE (Negative); Resp Syncy Virus RNA Qual PCR NEGATIVE (Negative); SARS COV2 PCR INHOUSE NEGATIVE (Negative)
[2024-10-20 03:29] VITALS: O2SAT 99
[2024-10-20] MEDS: Lidocaine HCl Viscous 2 % 15 ML SOLUTION MUCOUS MEM (04:37)
[2024-10-20] MEDS: dexAMETHasone sod phosphate 4 MG/ML VIAL 6 MG IVPUSH (04:37)
[2024-10-20] MEDS: Clindamycin HCL 300 MG CAPSULE PO (04:37)
[2024-10-20] MEDS: Benzonatate 100 MG CAPSULE PO (04:37)
--- NOTE | 2024-10-20 05:04 | ED_ITS ---
HPI - General Adult General Chief complaint: Upper Respiratory Symptoms Stated complaint: cough Time Seen by Provider: 10/20/24 04:10 Source: patient Mode of arrival: ambulatory Limitations: no limitations History of Present Illness ED Provider: Dr. Lynn Sheridan HPI narrative: Patient comes to the emergency room complaining of bilateral ear pain but mostly on the left. Patient states that she has been coughing for couple of days. Patient states that she is asthmatic, has been using her inhaler every 2-3 hours. At this time, no shortness of breath. Patient actively coughing. Eduardo es fever or chills. Related Data Home Medications ?Medication ?Instructions ?Recorded ?Confirmed [id number] 3-fat com #1 27 cap PO 05/18/23 mg-1 mg-300 mg capsule ibuprofen 600 mg tablet 800 mg PO Q8H PRN pain 05/18/23 levothyroxine 75 mcg tablet 75 mcg PO QAM 05/18/23 metformin 500 mg tablet 500 mg PO BID 05/18/23 vitamin E mixed 400 unit capsule unit PO 10/05/23 Previous Rx's ?Medication ?Instructions ?Recorded vitamin A palmitate 3,000 mcg 6,000 mcg (2 x 3,000 mcg (10,000 09/05/23 (10,000 unit) capsule unit)) PO DAILY 2 weeks #28 caps benzonatate 100 mg capsule 100 mg PO TID PRN cough #12 caps 10/20/24 clindamycin HCl 150 mg capsule 150 mg PO TID 7 days #21 caps 10/20/24 prednisone 50 mg tablet 50 mg PO DAILY #4 tabs 10/20/24 Allergies Allergy/AdvReac Type Severity Reaction Status Date / Time amoxicillin [AMOXICILLIN] Allergy Intermediate HIVES Verified 10/20/24 00:09 codeine [CODEINE] Allergy Intermediate RASH Verified 10/20/24 00:09 latex [LATEX] Allergy Intermediate RED PUFFY Verified 10/20/24 00:09 Penicillins [PENICILLINS] Allergy Intermediate HIVES Verified 10/20/24 00:09 shellfish derived [shellfish] Allergy Itching Verified 10/20/24 00:09 From KEFLEX Allergy Intermediate HIVES Uncoded 10/20/24 00:09 Review of Systems Review of Systems: Constitutional : No Weight loss, No Fever, No Chills, No Night Sweats, No Fatigue, No Malaise ENT/Mouth : No Hearing loss, complaining of bilateral Ear Pain, No Nasal Congestion, No Sinus Pain, No Hoarseness, No sore throat, No Rhinorrhea, No Swallowing Difficulty Eyes: No Eye Pain, No Swelling, No Redness, No Foreign Body, No Discharge, No Vision Changes Cardiovascular : No Chest Pain, No SOB, No Dyspnea on Exertion, No Orthopnea, No Edema, No Palpitations Respiratory : Complaining of dry cough Gastrointestinal : No Nausea, No Vomiting, No Diarrhea, No Constipation, No abdominal Pain, No Hematochezia, No Melena Genitourinary : no irregular bleeding, No Dysuria, No Urinary Frequency, No Hematuria, No Urinary Incontinence, No Urgency, No Flank Pain, No Urinary Flow Changes, No Hesitancy Musculoskeletal : No joint pain, No Myalgias, No Joint Swelling Skin : No Skin Lesions, No rash Neuro : No Weakness, No Numbness, No Paresthesias, No Loss of Consciousness, No Dizziness, No Headache Psych : No Anxiety/Panic, No Depression, No SI/HI/AH/VH, No Social Issues, Heme/Lymph: No Bruising, No Bleeding,No Lymphadenopathy Endocrine : No Polyuria, No Polydipsia, No Temperature Intolerance PMFSH Past Medical History Medical History Pre-diabetes Hypothyroid Severe binge-eating disorder Surgical History History of hip surgery History of tonsillectomy Family History Family History Mother No problems noted. Father No problems noted. Social History Social History Household Members: None Housing: Apartment Alcohol intake: never Patient Tobacco Use Status: Never used Tobacco Smoked in Last 30 Days: Yes Use of substances other than those prescribed or required for medical reasons: No Substance Use Type: Marijuana Advance Directives: No Do you have a plan to hurt others: No Plan Patient : No Physical Exam ED Vital Signs: Vital Signs - 24 hr 10/20/24 00:07 10/20/24 03:29 Temperature 98.3 F Pulse Rate 95 Respiratory Rate 18 Blood Pressure 113/82 Pulse Oximetry 95 99 Oxygen Delivery Method Room Air Room Air BMI result Body Mass Index 50.1 Const Other: Appearance: Alert. Oriented X3. No acute distress. Eyes: Pupils equal, round and reactive to light. ENT: Pharynx normal. Normal tone, normal oral mucosa. Patient has otitis media on the left. Patient has tympanic membrane foramen on the right tympanic membrane due to previous ear tubes Neck: Normal inspection. Neck supple. No lymph nodes noted. No crepitus CVS: Normal heart rate and rhythm. Pulses normal. Normal S1 and S2 Respiratory: No respiratory distress. Breath sounds normal. No rales , O2 within normal limits. No wheezing at all Abdomen: Soft and nontender. No rigidity. No distention. Skin: Skin warm and dry. Normal skin color. Normal skin turgor. Extremities: No lower extremity edema. No Lacerations. No Rash Neuro: Oriented X 3. No motor deficit. No sensory deficit. Moving all extremities. No slurred speech. CN 2 through 12 grossly intact Psych: calm, cooperative, normal affect Medications Administered Discontinued Medications Generic Name Dose Route Start Last Admin Trade Name Mingq PRN Reason Stop Dose Admin Benzonatate 100 mg 10/20/24 04:22 10/20/24 04:37 Benzonatate 100 Mg Capsule PO 10/20/24 04:23 100 mg ONCE ONE Administration Clindamycin HCl 300 mg 10/20/24 04:22 10/20/24 04:37 Clindamycin Hcl 300 Mg Capsule PO 10/20/24 04:23 300 mg ONCE ONE Administration Dexamethasone Sodium Phosphate 6 mg 10/20/24 04:23 10/20/24 04:37 Dexamethasone Sod Phosphate 4 Mg/Ml Vial IVPUSH 10/20/24 04:24 6 mg ONCE ONE Administration Lidocaine HCl 15 ml 10/20/24 04:23 10/20/24 04:37 Lidocaine Hcl Viscous 2 % 15 Ml Solution MUCOUS MEM 10/20/24 04:24 15 ml ONCE ONE Administration Medical Decision Making Medical Decision Making MDM Narrative: -patient's serology negative for influenza RSV and COVID -chest x-ray is negative for infiltrates. -patient was given p.o. Tessalon, lidocaine, dexamethasone. For the ear infection patient was treated with clindamycin. Patient is allergic to cephalosporins, penicillins, and believes she is allergic to azithromycin but is not sure. Differential Diagnosis Differential Diagnoses: The differential diagnosis associated with the presentation includes (As above) Lab Data MDM Lab Attestation statement: I reviewed the patient's lab results. Labs: Lab Results 10/20/24 Range/Units 00:31 Influenza Type A (PCR) NEGATIVE (Negative) Influenza Type B (PCR) NEGATIVE (Negative) RSV RNA Qual (PCR) NEGATIVE (Negative) SARS-CoV-2 RNA (RT-PCR) NEGATIVE (Negative) Independent Interpretation I performed an independent interpretation of an: Plain X-Ray Radiology Impression Discussion of test interpretation with radiology: I have reviewed the radiologist's reading. Radiologist Impression: The lungs appear clear. There is no consolidation, effusion, or nodule identified. Cardiomediastinal silhouette is within normal limits. IMPRESSION: No acute cardiopulmonary abnormality Discharge Plan Discharge Clinical Impression: Otitis media, Bronchitis Patient Disposition: Home, Self-Care Instructions: Ear Infection (ED), Acute Bronchitis (ED) Additional Instructions: Please follow-up with your primary care physician tomorrow. If you have any worsening or new symptoms, please return to the emergency room or call 911 Prescriptions: New clindamycin HCl 150 mg capsule 150 mg PO TID 7 Days Qty: 21 0RF benzonatate 100 mg capsule 100 mg PO TID PRN (Reason: cough) Qty: 12 0RF prednisone 50 mg tablet 50 mg PO DAILY Qty: 4 0RF No Action vitamin A palmitate 3,000 mcg (10,000 unit) capsule 6,000 mcg PO DAILY 14 Days Qty: 28 0RF levothyroxine 75 mcg tablet 75 mcg PO QAM metformin 500 mg tablet 500 mg PO BID ibuprofen 600 mg tablet 800 mg PO Q8H PRN (Reason: pain) [id number] 3-fat com #1 27-1-300 mg capsule PO vitamin E mixed 400 unit capsule PO Stand Alone Forms: Work/School Release Print Language: Guinean
[2024-10-20 05:27] VITALS: BP 113/82; PULSE 95; RESP 18; TEMP 36.8; O2SAT 99
== END 2024-10-20 05:28 | disposition home or self-care (01) ==
PROVIDERS: Emergency Provider Emergency Medicine; PCP Internal Medicine
DX: H66.93 Otitis media, unspecified, bilateral (principal); J40 Bronchitis, not specified as acute or chronic; R05.9 Cough, unspecified; H92.03 Otalgia, bilateral; Z79.899 Other long term (current) drug therapy; Z03.818 Encounter for observation for suspected exposure to other biological agents ruled out
CPT/HCPCS: 0241U; 71045; 96374; 99284; J1100

== ENCOUNTER → 2024-10-20 00:20 | Outpatient (BNV) | payer OTHER, SELFPAY | PROVIDERS: PCP Internal Medicine; Visit Provider Radiology Diagnostic Radiology | DX: R06.02 Shortness of breath (principal); R05.9 Cough, unspecified | CPT/HCPCS: 71045 ==

== ENCOUNTER 2024-12-11 21:15 | Emergency (ER) | payer OTHER, SELFPAY ==
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
[2024-12-11 21:30] VITALS: BP 168/108; PULSE 109; O2SAT 98
[2024-12-11 21:33] VITALS: BP 136/84; PULSE 91; RESP 18; TEMP 36.6; O2SAT 97; BMI 46.6
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
[2024-12-11 22:25] LABS: MANUAL DIFF FLAG NO
[2024-12-11 22:28] LABS: Basophils Percent Auto 0.2 % (0-2); Eosinophils Absolute Auto 0.2 X10*3/uL (0.0-0.4); Eosinophils Percent Auto 1.9 % (0-4); Hematocrit 39.2 % (37.0-47.0); Hemoglobin 13.1 g/dl (12.0-16.0); Imm Gran Abs Auto 0.06 X10*3/uL (0.00-0.03); Imm Gran Pct Auto 0.5 % (0.0-0.4); Lymphocytes Absolute Auto 3.5 X10*3/uL (1.2-4.9); Lymphocytes Percent Auto 30.7 % (20-40); Mean Corpuscular HGB Conc 33.4 g/dl (31.0-35.0); Mean Corpuscular Hemoglobin 29.8 pg (27.0-33.0); Mean Corpuscular Volume 89.1 fL (80.0-98.0); Mean Platelet Volume 10.4 fL (9.4-12.3); Monocytes Absolute Auto 0.7 X10*3/uL (0.1-1.2); Monocytes Percent Auto 6.1 % (2-11); Neutrophils Absolute Auto 6.9 x10*3/uL (2.0-8.3); Neutrophils Percent Auto 60.6 % (45-73); Platelet Count 291 X10*3/uL (160-400); Red Cell Distribution Width 12.3 % (11.0-16.0); White Blood Count 11.3 X10*3/uL (4.8-10.8)
[2024-12-11] MEDS: Ibuprofen 600 MG TABLET PO (22:44)
[2024-12-11 22:45] LABS: Anion Gap 12 (12-20); Blood Urea Nitrogen 12 mg/dL (9-16); Calcium 9.6 mg/dL (8.4-10.2); Carbon Dioxide 25 mmol/L (22-29); Chloride 106 mmol/L (96-108); Creatinine Clr Calc Pharmacy 147.7; Estimated Glomerular Filt Rate > 60; Glucose Random 99 mg/dL (60-115); Potassium 3.6 mmol/L (3.3-5.1); Sodium 139 mmol/L (135-145)
[2024-12-11 22:55] LABS: Troponin-I High Sensitivity < 2.7 ng/L (<3.5-17.0)
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
--- NOTE | 2024-12-11 23:39 | PC.NURSE ---
c-collar removed per provider verbal order.
[2024-12-12 00:10] LABS: Appearance Urine Cloudy; Bacteria Urine 4+ (None Seen); Color Urine Yellow; Glucose Urine UA Negative (Negative); Hyaline Casts Urine 0-2 /LPF (0-2); Leukocyte Esterase Urine Negative (Negative); Nitrite Urine Positive (Negative); PH 5.5 (5.0-9.0); Specific Gravity - Urine 1.025 (1.005-1.025); Squamous Epithelial Cell Urine 0-2 /HPF (0-2); UACC Culture Trigger YES; UMIC TRIGGER UACC YES; Urine Blood Moderate (2+) (Negative); Urine Ketones Trace mg/dL (Negative); Urine Protein 30 (1+) mg/dL (Neg-Trace); WBC Urine 0-5 /HPF (0-5)
[2024-12-12 00:38] LABS: UPreg QC Valid YES; Urine Pregnancy NEGATIVE (NEGATIVE)
[2024-12-12 00:51] VITALS: BP 136/84; PULSE 91; RESP 18; TEMP 36.6; O2SAT 97
== END 2024-12-12 00:52 | disposition home or self-care (01) ==
PROVIDERS: Emergency Provider Student in an Organized Health Care Education/Training Program; PCP Internal Medicine
DX: S00.03XA Contusion of scalp, initial encounter (principal); S60.812A Abrasion of left wrist, initial encounter; V43.52XA Car driver injured in collision with other type car in traffic accident, initial encounter; N39.0 Urinary tract infection, site not specified; B96.20 Unspecified Escherichia coli [E. coli] as the cause of diseases classified elsewhere; W22.11XA Striking against or struck by driver side automobile airbag, initial encounter; Y93.89 Activity, other specified; Y92.410 Unspecified street and highway as the place of occurrence of the external cause; Y99.9 Unspecified external cause status
CPT/HCPCS: 36415; 70450; 71046; 72125; 73120; 80048; 81001; 81025; 84484; 85025; 87086; 87088; 87186; 93005; 99284; 99285

== ENCOUNTER → 2024-12-11 21:43 | Outpatient (BNV) | payer OTHER, SELFPAY | PROVIDERS: Emergency Provider Student in an Organized Health Care Education/Training Program; PCP Internal Medicine; Visit Provider Internal Medicine Cardiovascular Disease | DX: S09.90XA Unspecified injury of head, initial encounter (principal); V89.2XXA Person injured in unspecified motor-vehicle accident, traffic, initial encounter | CPT/HCPCS: 93010 ==

== ENCOUNTER → 2024-12-11 21:43 | Outpatient (BNV) | payer OTHER, SELFPAY | PROVIDERS: Emergency Provider Student in an Organized Health Care Education/Training Program; Visit Provider Radiology Diagnostic Radiology | DX: M54.2 Cervicalgia (principal); R22.0 Localized swelling, mass and lump, head; W22.10XA Striking against or struck by unspecified automobile airbag, initial encounter | CPT/HCPCS: 70450; 71046; 72125; 73120 ==